=== PATIENT | female | born 1960 | race Caucasian/White ===

== ENCOUNTER 2017-05-24 00:48 | Inpatient (IN) | payer MEDICARE, BC ==
[~2017-05-24] VITALS: Ht 160 cm; Wt 57.6 kg
--- NOTE | ~2017-05-24 | CO ---
Unit #: [id number] #: [id number] Patient: BÁRBARA GREGG V [id number] [address] [place], [place] [address] [id number] I MR#: [id number] NAME: BÁRBARA GREGG V. ROOM: 228 Age: 57 Sex: F Admission Date: 05/24/2017 : 1960 Attending Physician: Mitzi Hernandez M.D. Primary Care Physician: Primary Care Physician No Consultation Date: 06/03/2017 CONSULTATION REPORT REASON FOR CONSULTATION Followup. DISCUSSION Ms. Bárbara Gregg is a 57-year-old female, seen in room 228, bed 1 on 06/03/2017. The patient reports having problem with the anxiety, problem with sleep. The patient was taken off from all medication, as the patient was admitted in delirious state in ICU. The patient reports making progress, breathing better, still having problem with depression and anxiety, but denied any suicidal or homicidal ideation. Denied any psychotic symptom. The patient's vital signs; temperature 98.4, heart rate 79, respiratory rate 18, blood pressure 141/86, oxygen saturation 99%. MENTAL STATUS EXAMINATION General appearance; the patient dressed in hospital attire, thin built, dressed casually, seemed somewhat anxious, nervous. Attention span and concentration, fair. Speech, rapid in rate. Oriented in time, place, and person. Mood and affect, labile. Thought process, circumstantial. Thought content, the patient denied any thoughts of harming self or others or any auditory or visual hallucinations but somewhat guarded. Recent and remote memory, fair. Language, intact. Fund of knowledge, fair. Insight and judgment, fair to slightly impaired. DIAGNOSIS Psychiatric: Major depressive disorder, recurrent, severe, F33.2. ASSESSMENT/PLAN 1. Supportive psychotherapy and psychoeducation provided to the patient. 2. Educated about benefits and side effects of medication and course and prognosis of illness. 3. Recommending at this time to add Remeron 15 mg at bedtime to help with sleep, depression, anxiety, appetite and Vistaril 25 mg b.i.d. for anxiety. We will continue to follow. Please feel free to call if any questions, telephone #[phone]. Dictated by... Diana Swanson/jessa TD: 06/03/2017 23:25 JOB #: [id number] Unit #: [id number] #: [id number] Patient: BÁRBARA GREGG V CONSULTATION REPORT Page 1 of 1 X Familia Simpson MD CONSULTATION REPORT
--- NOTE | ~2017-05-24 | CO ---
Unit #: [id number] #: [id number] Patient: BÁRBARA GREGG V [id number] [facility] [address]. [place], [place] [address] [id number] I MR#: [id number] NAME: BÁRBARA GREGG ROOM: 549 Age: 57 Sex: F Admission Date: 05/24/2017 : 1960 Attending Physician: Mitzi Hernandez M.D. Primary Care Physician: Primary Care Physician No Consultation Date: 05/30/2017 CONSULTATION REPORT REASON FOR CONSULTATION Psychosis, confusion, depression, anxiety. HISTORY OF PRESENT ILLNESS Ms. Bárbara Gregg is a 57-year-old white female, seen in room CCU-3, bed 15 at [facility] on 05/30/2017. The patient dressed casually in hospital attire, sitting comfortably in chair, made poor eye contact. She seemed somewhat sleepy, drowsy, confused, repeating same sentence over and over again. The patient was unable to give any coherent information. No agitation. Vital signs; temperature afebrile, pulse 92, respirations 16, blood pressure 126/69, and oxygen saturation 100%. The patient was admitted on 05/24/2017 due to decrease oral intake, not feeling well, shortness of air, and cough. The patient was diagnosed with empyema. The patient is sleeping a lot, increase sedation. PAST PSYCHIATRIC HISTORY Remarkable for history of depression and anxiety. No known history of any inpatient treatment. History of being treated with medication. MEDICAL HISTORY History of recurrent pneumonia, COPD, anxiety, depression, fibromyalgia, chronic pain. MEDICATION HISTORY At the time of admission, the patient was on Valium, Norvasc, doxepin, morphine, hydroxyurea, Topamax, tizanidine. FAMILY HISTORY AND SOCIAL HISTORY The patient has a good support system. No history of abuse. No history of any substance abuse. REVIEW OF SYSTEMS Complete review of systems is unremarkable. MENTAL STATUS EXAMINATION The patient's vital signs, please see above. General appearance; the patient dressed in hospital attire, sitting comfortably in chair, somewhat sleepy and drowsy. Attention span and concentration, poor. Speech, rambling. Orientation in self. Mood and affect, labile. Thought process, circumstantial. Thought content, unable to assess, somewhat guarded and paranoid. Recent and remote memory, poor. Language, poor. Fund of knowledge, impaired. Insight and judgment, impaired. Unit #: [id number] #: [id number] Patient: BÁRBARA GREGG V DIAGNOSES Psychiatric: Major depressive disorder, recurrent, severe, F33.2; anxiety disorder, not otherwise specified, F40.01; delirium, F05; psychosis, not otherwise specified, F29.0. Secondary diagnosis: Deferred. Medical diagnosis: Please refer to H and P. Stressors: Psychosocial stressors. ASSESSMENT/PLAN Supportive psychotherapy and psychoeducation provided to the patient, but the patient unable to comprehend much at this time. Recommending at this time to discontinue Valium. At this time, the patient is getting Valium 5 mg q.8 hourly which is adding to her sedation. The patient is also getting pain medication. We would like to avoid Valium as far as possible and monitor for any side effects and consider low dose of Risperdal if needed for psychosis. We will continue to follow. Please feel free to call if any questions, telephone #[phone]. Dictated by... Diana Swanson/jesas TD: 05/30/2017 23:37 JOB #: [id number] CONSULTATION REPORT Page 1 of 1 X Familia Simpson MD X CONSULTATION REPORT
--- NOTE | ~2017-05-24 | CT4 ---
[facility] A Service of [facility] RADIOLOGY TEXT RESULTS PATIENT: BÁRBARA JAY V LOCATION: [facility] : 56 UNIT #: [id number] AGE: [address]: Mitzi Hernandez MD SEX: F ORDER DR: [id number] [facility] [address]. [place], [place] [address] [id number] I MR#: [id number] Acc #: [id number] NAME: BRÁBARA JAY : 1960 SEX: F STUDY DATE/TIME: 05/24/2017 13:11 UNIT: C3A PCU ROOM: 310 STUDY DESCRIPTION: CT Abd and Pelv Wo Cont Attending Physician: Mitzi Hernandez M.D. Ordering Physician: [facility] MEDICAL IMAGING REPORT This report is preliminary unless electronic signature is present EXAM CT abdomen and pelvis without contrast INDICATIONS Abdominal distention since yesterday. TECHNIQUE CT of the abdomen and pelvis was performed without contrast. Coronal and sagittal reformatted images were obtained. This CT exam was performed with one or more of the following radiation dose reduction techniques: automatic exposure control, adjustment of mA and/or kV according to patient size, and iterative reconstruction. COMPARISON STUDIES No comparison studies are available. FINDINGS The liver is unremarkable. Trace ascites around the dome of the liver. Cholecystectomy. The spleen is unremarkable. Tiny presumed hyperdense cyst left kidney. The right kidney is unremarkable. Adrenal glands are unremarkable. Pancreas is unremarkable. There are dilated fluid-filled loops of small bowel and fluid within the colon. PELVIS: There is a Gonzalez catheter in the bladder and a small amount of air in the nondependent portion of the urinary bladder. There is some fluid within the colon. There is trace free fluid in the deep pelvis. Remainder of the pelvis is unremarkable. Bone windows demonstrate degenerative changes lower lumbar spine. IMPRESSION 1. There are dilated, fluid-filled loops of small bowel but there is also [facility] A Service [facility] RADIOLOGY TEXT RESULTS PATIENT: BÁRBARA JAY V LOCATION: [facility] 310 : [birth year] UNIT #: [id number] AGE: [address]: Mitzi Hernandez MD SEX: F ORDER DR: fluid within the colon and there is no obvious bowel obstruction. 2. Cholecystectomy. 3. Gonzalez catheter within the bladder. Dictated by... Jared Hadley M.D. THIS IS AN ELECTRONICALLY VERIFIED REPORT Jared Hadley M.D. at 05/26/2017 12:11 PM ARS/pcl TD: 05/24/2017 22:01 JOB #: [id number] MEDICAL IMAGING REPORT Page 1 of 1 COPY
--- NOTE | ~2017-05-24 | CO ---
Unit #: [id number] #: [id number] Patient: BÁRBARA GREGG V [id number] [facility] [address] [facility]. [place], [place] [address] [id number] I MR#: [id number] NAME: BÁRBARA GREGG V. ROOM: 228 Age: 57 Sex: F Admission Date: 05/24/2017 : 1960 Attending Physician: Mitzi Hernandez M.D. Primary Care Physician: Primary Care Physician No Consultation Date: 06/02/2017 CONSULTATION REPORT DISCUSSION Ms. Bárbara Gregg is a 57-year-old female, seen on 06/02/2017. The patient interviewed, chart reviewed, and obtained information from nursing staff. The patient seen in room 228, bed 1 on 06/02/2017. The patient seen at [facility]. The patient still sad, depressed, anxious, but making progress and breathing better. She still having problem with mood lability, anxiety trouble sleeping. The patient was initially admitted to in order mental status in ICU. The patient reports making progress. Denied any suicidal or homicidal ideation, but problem with the anxiety, feeling anxious and nervous. The patient's vital signs; temperature 98.2, heart rate 67, respiratory rate 20, blood lucgniou389/88, and oxygen saturation 98%. MENTAL STATUS EXAMINATION General appearance; the patient dressed in hospital attire. Attention span and concentration, fair. Speech, regular rate and somewhat rapid. Oriented in time, place, and person. Mood and affect, labile. Thought process, circumstantial. Thought content, the patient denied any thoughts of harming self or others, but anxious, nervous, sad, depressed. Recent and remote memory, fair to slightly impaired. Language, fair. Fund of knowledge, fair. Insight and judgment, fair to slightly impaired. DIAGNOSES Psychiatric: Major depressive disorder, recurrent, severe, F33.2; anxiety disorder, not otherwise specified, F40.01. ASSESSMENT/PLAN 1. Supportive psychotherapy and psychoeducation provided to the patient. 2. Educated about benefits and side effects of medication and course and prognosis of illness. 3. Plan to consider starting the patient on Vistaril and Remeron. If no improvement, we will continue to follow. Please feel free to call if any questions telephone #[phone]. Dictated by... Diana Swanson/jessa TD: 06/04/2017 01:00 JOB #: [id number] Unit #: [id number] #: [id number] Patient: BÁRBARA GREGG V CONSULTATION REPORT Page 1 of 1 X Fmailia Simpson MD X CONSULTATION REPORT
--- NOTE | ~2017-05-24 | XA166 ---
[facility] A Service of [facility] RADIOLOGY TEXT RESULTS PATIENT: BÁRBARA JAY V LOCATION: [facility] 228-01 : [birth year] UNIT #: [id number] AGE: [address]: Mitzi Hernandez MD SEX: F ORDER DR: [id number] [place] [id number] [facility]. [place], [place] [address] [id number] I MR#: [id number] Acc #: [id number] NAME: BÁRBARA JAY V. : 1960 SEX: F STUDY DATE/TIME: 06/04/2017 14:23 UNIT: [facility] ROOM: [facility] STUDY DESCRIPTION: XA PICC Line Placement WO Port Attending Physician: Mitzi Hernandez M.D. Ordering Physician: Mitzi Hernandez M.D. Primary Care Physician: Primary Care Physician No MEDICAL IMAGING REPORT This report is preliminary unless electronic signature is present EXAM Right sided PICC line placement HISTORY Need for IV access in a patient with pneumonia and emphysema. Symptoms started May 24, 2017. PRE-PROCEDURE The procedure was explained to the patient and/or patient player services representative including risks, benefits, potential complications and potential for alternative forms of treatment. Informed consent was obtained, and prior to initiating the procedure a formal timeout procedure was performed. PROCEDURE Using full standard sterile barrier technique, including caps, gowns, gloves, masks, as well as sterile skin preparation and standard sterile draping, the right arm was prepped and draped in the usual fashion, and real-time sterile ultrasound guidance was used to localize an arm vein and to confirm vessel patency. A hard copy ultrasound image was recorded. After local anesthesia with 1% Xylocaine, the vein was punctured using real-time sterile ultrasound guidance, and an 0.018 guidewire was advanced into the superior vena cava, using fluoroscopic guidance. A 5 Citizen [place] dual-lumen PICC was then measured and deployed with the tip positioned in the superior vena cava. The position of the line was documented with a radiographic image. The line was secured in place with an adhesive dressing and an antibiotic patch was applied. Total fluoro time was 0.1 minutes. AK was 1 mGy. IMPRESSION Successful placement of a 5 [place] dual-lumen PowerPICC via the right arm under ultrasound and fluoroscopic guidance. The tip of the PICC is in STS. [facility] A Service of [facility] RADIOLOGY TEXT RESULTS PATIENT: BÁRBARA JAY V LOCATION: [facility] 228-01 : [birth year] UNIT #: [id number] AGE: [address]: Mitzi Hernandez MD SEX: F ORDER DR: good position in the superior vena cava. Dictated by... Missy Sutton M.D. THIS IS AN ELECTRONICALLY VERIFIED REPORT Missy Sutton M.D. at 06/06/2017 5:06 PM JOHNNY/warner TD: 06/06/2017 12:53 JOB #: [id number] MEDICAL IMAGING REPORT Page 1 of 1 COPY
--- NOTE | ~2017-05-24 | CO ---
Unit #: [id number] #: [id number] Patient: BÁRBARA JAY V [id number] [address] [place], [place] [address] [id number] I MR#: [id number] NAME: BÁRBARA JAY V. ROOM: 310 Age: 57 Sex: F Admission Date: 05/24/2017 : 1960 Attending Physician: Mitzi Hernandez M.D. Primary Care Physician: No Primary Care Physician Consultation Date: 05/24/2017 CONSULTATION REPORT ADMITTING AND REFERRING PHYSICIAN Dr. Sadler. CONSULTING SERVICE [facility]. CONSULTING PHYSICIAN Dr. Gil. REASON FOR CONSULTATION Acute kidney injury. HISTORY OF PRESENT ILLNESS The patient is a 57-year-old white female with history of hypertension, fibromyalgia, chronic pain who was transferred from [facility] for further management of pneumonia and empyema. She was admitted there on April 25, 2017 for pneumonia, hospitalized about a week, then discharged to rehab for a short stay. She continued to decline at home and was re-admitted to [facility] four days ago. I do not see any records from there at this time. Upon transfer here, she is noted to have marked azotemia with BUN of 54 and creatinine of 5.5 and metabolic acidosis with serum bicarbonate of 14. She is aware of abnormal renal function at [facility] but does not recall being seen by nephrology. The patient is a very poor historian in general. Her mentation is slow and she defers much of the questioning to her sister at bedside. She denies any nausea or vomiting but does note diarrhea lately. She reports some recent anti-inflammatory use. She denies any dysuria, hematuria, or hesitancy. Gonzalez catheter has been placed upon arrival here and there is about 200 mL of urine in the bag presently. Blood pressure was down to 95/65 earlier. She has been started on midodrine and normal saline at 125 mL/hr. She just returned from interventional radiology where a right internal jugular triple lumen catheter was placed. She also is to go for noncontrast CT of chest, abdomen, and pelvis this afternoon. She is unaware of any prior kidney problems in general including kidney stones. Records found from [facility]: Additional home medications noted on these record include meloxicam, lisinopril, omeprazole, prednisone. She had a CT of the head that showed remote lacunar infarct of the basal ganglia but no acute abnormalities. She was treated with Zyvox and Zosyn there. Creatinine was 3.1 on May 21, 2017. CT abdomen and pelvis without contrast on May 20 demonstrated unremarkable kidneys, no hydronephrosis, severe ileus noted along with right lower lobe cavitary consolidation and effusion which was also demonstrated on CT chest May 23. Hemoglobin was 8.6 yesterday and creatinine had climbed to 4.3 on May 23. Urinalysis Unit #: [id number] #: [id number] Patient: BÁRBARA JAY V yesterday demonstrated moderate blood, trace protein. PAST MEDICAL HISTORY 1. Hypertension. 2. Fibromyalgia. 3. Chronic pain. 4. Migraine headaches. 5. Anxiety and depression. 6. COPD. 7. Recurrent pneumonia. PAST SURGICAL HISTORY 1. Cholecystectomy. 2. Tonsillectomy. 3. Appendectomy. FAMILY HISTORY Unaware of any kidney problems. SOCIAL HISTORY Half pack per day smoker. Denies alcohol. HOME MEDICATIONS 1. Valium. 2. Norvasc. 3. Doxepin. 4. Morphine. 5. Hydroxyurea (cannot clearly identify indication for this medication). 6. Topamax. 7. Tizanidine. ALLERGIES Deconamine. REVIEW OF SYSTEMS Unable to fully obtain due to patient's limitations as a historian. Pertinent findings as per HPI. PHYSICAL EXAMINATION VITAL SIGNS: Temperature 97.7, blood pressure 105/62, heart rate 92, respirations 18. GENERAL: The patient is a pleasant middle-aged white female with a flat affect and somewhat slow mentation. She is in no acute distress. HEENT: Oropharynx is clear. Dry mucous membranes. NECK: Supple. No JVD. Right internal jugular triple lumen catheter in place. LUNGS: Coarse breath sounds bilaterally, diminished at the bases. CARDIAC: Regular rate and rhythm. No murmurs. ABDOMEN: Soft, nontender, nondistended. VASCULAR: No pedal or hip edema. Two plus radial pulses. DERMATOLOGIC: Normal skin turgor. No rash. MUSCULOSKELETAL: No joint warmth or erythema. NEUROLOGIC: Follows commands appropriately. Speech is intact. DIAGNOSTIC STUDIES LABORATORY: Sodium 133, potassium 4.1, chloride 105, bicarbonate 14, BUN 54, creatinine 5.5, glucose 67, calcium 7.7. Albumin 1.6, AST 28, ALT 25. Lactic acid 0.9. Unit #: [id number] #: [id number] Patient: BÁRBARA JAY V IMAGING: Imaging from today is pending including repeat CT abdomen without contrast. ASSESSMENT 1. Acute kidney injury: Appears to be nonoliguric. Suspect acute tubular necrosis in the setting of pneumonia, empyema, nonsteroidal anti-inflammatory and angiotensin converting enzymes inhibitor use. Volume depletion appears unlikely as the patient was receiving IV fluids at outside hospital without improvement. Her creatinine has steadily increased from 3 to 4.3 to 5.5 today. There is no obstruction on CT abdomen and pelvis at outside hospital. Acute interstitial nephritis is also a consideration, i.e. from proton pump inhibitor use or Zosyn, though this is less likely. Potassium is normal. The patient had significant metabolic acidosis, though there is no acute indication for hemodialysis. 2. Recurrent pneumonia, empyema: Infectious disease evaluation noted. Antibiotics switched to cefepime and Levaquin. Zosyn and Zyvox were discontinued. Cardiothoracic surgery has been consulted for possible VATS. 3. Hypotension: Blood pressure has improved from 90 systolic to 105. Midodrine started, though patient is NPO at this time. There is no need for pressor at the moment. 4. Metabolic acidosis: Severe with serum bicarbonate of 14, corrected anion gap of approximately 20. This is due to acute kidney injury as well as outpatient Topamax use. 5. Hyponatremia: Mild, sodium 133. 6. Small bowel obstruction: CT abdomen from here is pending. Nasogastric tube placement was unsuccessfully attempted earlier. PLAN 1. No acute indication for hemodialysis. 2. Continue normal sinus rhythm, IV fluids (bicarbonate drip shortage confirmed with pharmacy still). 3. Antibiotics per infectious disease. 4. Avoid IV contrast. 5. Renally dosed medications for GFR less than 15 mL/min. 6. I discussed with patient the possible need for hemodialysis if current trend in waste products and acidosis continues through the weekend. Thank you, Dr. Sadler, for involving me in patient's care. Will follow along. Dictated by... Yomi Gil M.D. FALLON/wes TD: 05/27/2017 09:29 JOB #: [id number] Unit #: [id number] #: [id number] Patient: BÁRBARA JAY V CONSULTATION REPORT Page 1 of 1 X X CONSULTATION REPORT
--- NOTE | ~2017-05-24 | CO ---
Unit #: [id number] #: [id number] Patient: BÁRBARA JAY V [id number] [address] [place], [place] [address] [id number] I MR#: [id number] NAME: BÁRBARA JAY ROOM: 549 Age: 57 Sex: F Admission Date: 05/24/2017 : 1960 Attending Physician: Mitzi Hernandez M.D. Primary Care Physician: Primary Care Physician No Consultation Date: 05/31/2017 CONSULTATION REPORT REASON FOR CONSULT Decreased ejection fraction with possible CHF. HISTORY OF PRESENT ILLNESS This is a pleasant 57-year-old, female, who was originally admitted on 05/24/2017. The patient has a past medical history significant for COPD, anxiety, depression, fibromyalgia, chronic pain syndrome, and recurrent pneumonia. She initially presented to the emergency room at [facility] secondary to decreased oral intake and fatigue, shortness of breath and cough. The patient was transferred here for further evaluation. CT scan showed a loculated right pleural effusion as well as a right lower lobe pneumonia. The patient underwent right-sided VATS procedure on 05/28/[address] Lopez with chest tube placement. Her chest tube has been removed today. We were asked to see the patient secondary to possible CHF. 2D echo has been reviewed by Dr. Naidu, which shows ejection fraction estimated at 35%, mild to moderate generalized hypokinesis of left ventricle, impaired relaxation, grade 1 diastolic dysfunction, mild to moderate tricuspid regurgitation with RVSP of 50 mmHg, mildly enlarged right ventricle with mildly reduced right ventricular function. The patient denies any past medical history of congestive heart failure. Denies any history of coronary artery disease. She states that she does not have any complaints of chest pain or palpitations at this time. EKG is currently pending. Of note, the patient does have a significant family history for coronary artery disease in both, her mother who has CAD and history of stents as well as her father who has of an CT at age 64. PAST MEDICAL HISTORY 1. Hypertension. 2. Recurrent pneumonia. 3. COPD. 4. Anxiety. 5. Depression. 6. Fibromyalgia. 7. Chronic pain syndrome. PAST SURGICAL HISTORY 1. Cholecystectomy. 2. Tonsillectomy. 3. Appendectomy. 4. Status post VATS procedure with subsequent chest tube placement and removal. Unit #: [id number] #: [id number] Patient: BÁRBARA JAY V SOCIAL HISTORY The patient lives with her mother and brother. She is a reformed tobacco user. States she quit approximately 2 weeks ago. Prior to that, she was smoking about half pack a day for 20+ years. She reports occasional alcohol use. Denies any illicit drug use. FAMILY HISTORY Positive for hypertension, coronary artery disease in her mother with a history of angioplasty and stenting. Father has known coronary artery disease, at age 64 from myocardial infarction. ALLERGIES Deconamine. HOME MEDICATIONS Amlodipine 5 mg p.o. daily, lisinopril 10 mg p.o. q.h.s., Lyrica 100 mg p.o. t.i.d., tizanidine 4 mg p.o. t.i.d., Embeda ER 80/3.2 p.o. b.i.d., diazepam 10 mg p.o. t.i.d., Robaxin 750 mg p.o. t.i.d., topiramate 50 mg p.o. b.i.d., loratadine D one tablet p.o. daily, doxepin 100 mg p.o. q.h.s., Savella 50 mg p.o. b.i.d., rizatriptan 10 mg p.o. daily. REVIEW OF SYSTEMS Negative except for what was stated above in the HPI. PHYSICAL EXAMINATION GENERAL: This is a pleasant female, with a flat affect. No acute distress. She is currently up in the chair. VITAL SIGNS: Temperature 97.9, respiratory rate 18 to 20, pulse 88, blood pressure 155/86. HEENT: Head is atraumatic and normocephalic. Pupils are equal and round. NECK: Trachea is midline. No lymphadenopathy. No thyromegaly. Carotid upstrokes are normal. She does have a central line on the right side. CARDIOVASCULAR: S1, S2. No murmurs, gallops, or rubs. PULMONARY: Lungs are clear to auscultation on the anterior, diminished on the right base. The patient does have a dressing into place. Status post chest tube removal today. ABDOMEN: Soft, nontender, nondistended. Bowel sounds are present. EXTREMITIES: Pulses are palpable, but weak. No clubbing or cyanosis. She does have 1+ pedal edema bilaterally. Right upper extremity is swollen. Pulses are palpable. NEUROLOGIC: She is awake, alert, and oriented x3. Moves all extremities equally and appropriately. She follows commands with ease. DIAGNOSTIC STUDIES LABORATORY RESULTS: Glucose 91, BUN 22, creatinine 2.1. Sodium 135, potassium 3.4, chloride 100, CO2 of 28, magnesium is 1.6. Albumin is 1.5 and TSH is 3.82. PT 14.4, INR of 1.3. Hemoglobin 8.1, hematocrit 24.3, WBCs 25.6, platelet count 536. IMAGING STUDIES: Chest x-ray today shows right-sided chest tubes remain in place. Right IJ central line terminates in the right atrium. Heart and mediastinal contours are unchanged. Patchy right lung airspace opacities and small right effusion are unchanged. No pneumothorax. CARDIOVASCULAR STUDIES: EKG shows sinus tachycardia, rate of 114 beats per minute. QTc interval 432 msec. Cannot rule out prior inferior and anterior infarct. No acute ischemic changes noted. Unit #: [id number] #: [id number] Patient: BÁRBARA JAY V IMPRESSION 1. Decreased ejection fraction of 35%. 2. Possible congestive heart failure. 3. Recurrent pneumonia, status post right-sided video-assisted thoracoscopic surgery procedure with subsequent chest tube placement and removal. 4. Acute on chronic kidney disease. Creatinine 2.1. 5. Chronic obstructive pulmonary disease. 6. Hypertension. 7. Anxiety and depression. 8. Recently reformed tobacco cessation approximately 2 weeks ago. 9. Anemia. PLAN This is a very pleasant 57-year-old female, who has had no prior cardiac history. We were asked to see the patient secondary to possible CHF. 2D echocardiogram was performed, which shows an LVEF of 35%. Grade 1 diastolic dysfunction as well as mild to moderate TR with an RVSP of 50 mmHg. The patient reports she has never had ischemic workup in the past. We will check EKG x1 now as well as a fasting lipid profile in the morning. No FRANCISCO JAVIER or ARB can be initiated at this time secondary to her acute on chronic kidney injury. The patient does have risk factors for coronary artery disease, which include hypertension, tobacco abuse, family history coronary artery disease. Would recommend ischemic evaluation to rule out any underlying coronary artery disease. We will consider initiation of beta-misti tomorrow at this time. She does not appear to be in any fluid overload, requiring diuretic therapy. She was educated on the importance of continued smoking cessation as well as lifestyle modification. Further recommendations to follow pending Dr. Naidu's assessment. Also, the patient is slightly hypokalemic. We will give a gentle dose of K-Dur today x1 as well as magnesium replacement. We will check BNP, magnesium, BMP and a CBC in the morning. Dictated by... Magalys Ellsworth A.P.R.N. LMW/modl TD: 06/01/2017 08:22 JOB #: [id number] CONSULTATION REPORT Page 1 of 1 X Magayls Ellsowrth APRN X CONSULTATION REPORT
--- NOTE | ~2017-05-24 | CO ---
Unit #: [id number] #: [id number] Patient: BÁRBARA JAY V [id number] [address] [place], [place] [address] [id number] I MR#: [id number] NAME: BÁRBARA JAY V. ROOM: 310 Age: 57 Sex: F Admission Date: 05/24/2017 : 1960 Attending Physician: Mitzi Hernandez M.D. Primary Care Physician: Primary Care Physician No Consultation Date: 05/24/2017 CONSULTATION REPORT The consultation was requested per Dr. Sadler of Pulmonary. HISTORY OF PRESENT ILLNESS The patient is a 56-year-old white female with a history of chronic obstructive pulmonary disease, who was in [facility] for about 1 week last month for pneumonia. She was then transferred to a rehab center and then subsequently discharged home after about 5 days. She recently presented back to the emergency room at [facility] secondary to increased cough, shortness of breath, diarrhea, and abdominal pain. X-ray studies done at that time showed right pneumonia with what seemed to be an associated loculated effusion suggestive of empyema. There was also found to be dilated loops of small and large bowel. She was transferred to [facility] for further evaluation and treatment. She was placed on IV antibiotics, which included Zyvox and Zosyn. Because of an elevated BUN and creatinine, she was also seen by Renal. Also in view of her abdominal distention and pain, she was evaluated by General Surgery. ALLERGIES The patient is allergic to Deconamine. PAST MEDICAL HISTORY She has a past history of recurrent pneumonia, chronic obstructive pulmonary disease, anxiety, depression, fibromyalgia, and chronic pain syndrome. PAST SURGICAL HISTORY Include cholecystectomy, tonsillectomy and adenoidectomy, and an appendectomy. SOCIAL HISTORY She smokes about 1/2 pack of cigarettes per day. She drinks alcohol occasionally. She denies any drug abuse. FAMILY HISTORY Significant for hypertension, cancer, heart disease, and diabetes mellitus. HOME MEDICATIONS Include Valium, Norvasc, doxepin, morphine, hydroxyurea, Topamax, and tizanidine. REVIEW OF SYSTEMS Essentially negative except for those things stated in the present illness and past history. Unit #: [id number] #: [id number] Patient: BÁRBARA JAY V PHYSICAL EXAMINATION VITAL SIGNS: The patient's temperature is 97.7, the pulse is 92, respirations 18, and blood pressure 105/62. HEENT: Normocephalic without lesions. The pupils are equally round and reactive to light. Extraocular movements are full. NECK: Supple without adenopathy. LUNGS: Decreased breath sounds bilaterally at the bases, but worse on the right side and associated with some rhonchi. HEART: Regular rhythm without murmurs. ABDOMEN: Distended and tender to palpation. The patient has hypoactive bowel sounds. EXTREMITIES: No cyanosis or edema present. NEUROLOGIC: No focal neurologic deficits present. DIAGNOSTIC STUDIES LABORATORY RESULTS: The potassium was 4.1, the BUN was 54, the creatinine is elevated at 5.5. IMAGING STUDIES: Chest and abdominal CT scans showed evidence of right pneumonia with a loculated right pleural effusion, suggestive of possible empyema. The patient was also noted to have distended small bowel and colon throughout suggestive of a possible ileus. IMPRESSION 1. Right-sided pneumonia with a moderate-sized loculated right pleural effusion suggestive of a possible empyema. 2. Probable ileus. 3. Acute renal failure. PLAN Agree with gentle hydration and IV antibiotics as we are doing. The patient will eventually need a right video-assisted thoracoscopy with decortication after she stabilizes from her abdominal symptoms and the renal failure. Dictated by... Diana Esquivel/jessa TD: 05/28/2017 04:37 JOB #: [id number] CONSULTATION REPORT Page 1 of 1 X Bob Lopez MD X CONSULTATION REPORT
--- NOTE | ~2017-05-24 | EKG ---
PATIENT: BÁRBARA JAY UNIT #: [id number] Ventricular Rate: 114 BPM Atrial Rate: 114 BPM P-R Interval: 154 ms QRS Duration: 80 ms Q-T Interval: 314 ms QTC Calculation(Bezet): 432 ms P [place]: 34 degrees Calculated R [place]: -8 degrees Calculated T [place]: 10 degrees Diagnosis Line: Sinus tachycardia Diagnosis Line: Cannot rule out Inferior infarct , age Diagnosis Line: undetermined Diagnosis Line: Cannot rule out Anterior infarct , age Diagnosis Line: undetermined Diagnosis Line: Abnormal ECG Diagnosis Line: No previous ECGs available Diagnosis Line: Confirmed by MARIOLA ORTIZ MD ([id number]) on Diagnosis Line: 05/31/2017 3:36:54 PM INTERPRETING MD: KARLI
--- NOTE | ~2017-05-24 | CR4 ---
[facility] A Service of [facility] RADIOLOGY TEXT RESULTS PATIENT: BÁBRARA JAY V LOCATION: [facility]15 : 56 UNIT #: [id number] AGE: [address]: Mitzi Hernandez MD SEX: F ORDER DR: [id number] [facility] [address] [facility] [address] [facility]. [place], [place] [address] [id number] I MR#: [id number] Acc #: [id number] NAME: BÁRBARA JAY : 1960 SEX: F STUDY DATE/TIME: 05/24/2017 20:07 UNIT: C3A PCU ROOM: 310 STUDY DESCRIPTION: CR Abdomen Flat Upright or Dec Attending Physician: Mitzi Hernandez M.D. Ordering Physician: Angel Bliss Jr., M.D. Primary Care Physician: Primary Care Physician No MEDICAL IMAGING REPORT This report is preliminary unless electronic signature is present EXAM Acute abdominal series COMPARISON CT chest abdomen pelvis on the same date. INDICATION 57-year-old female with abdominal pain for 2 days. FINDINGS There is a loculated right pleural effusion with associated right basilar atelectasis or pneumonia. There has been interval placement of right internal jugular catheter with the tip in the deep right atrium, consider retraction by approximately 6.5 cm. No evidence of pneumothorax. Cardiomediastinal silhouette is within normal limits for low lung volumes. There is no free subdiaphragmatic air. There is gaseous distension of small bowel loops and colon, a finding which seems to reflect ileus. There appears to be diffuse fluid distension of small bowel and colon on comparison CT of earlier today and the findings could reflect an ileus secondary to acute enteritis. There are bilateral pelvic calcifications most in keeping with phleboliths. Prior cholecystectomy noted. Degenerative facet disease in the lower lumbar spine, L4-L5 and likely L5-S1. IMPRESSION 1. Findings most consistent with ileus. No evidence of bowel perforation. 2. Moderate to small loculated right pleural effusion with associated right atelectasis versus pneumonia. 3. Interval placement of a right internal jugular catheter since CT of May 24, 2017. This is in the deep right atrium. Consideration of retraction by approximately 6.5 cm is recommended. [facility] A Service of [facility] RADIOLOGY TEXT RESULTS PATIENT: ÁBRBARA JAY V [facility]ATION: [facility] : 56 UNIT #: [id number] AGE: [address]: Mitzi Hernandez MD SEX: F ORDER DR: Dictated by... Tim Smith M.D. THIS IS AN ELECTRONICALLY VERIFIED REPORT Tim Smith M.D. at 05/29/2017 1:34 PM MANSOOR/zachariahr TD: 05/25/2017 01:57 JOB #: [id number] MEDICAL IMAGING REPORT Page 1 of 1 COPY
--- NOTE | ~2017-05-24 | CO ---
Unit #: [id number] #: [id number] Patient: BÁRBARA JAY V [id number] [address] [address] [id number] I MR#: [id number] NAME: BÁRBARA JAY V. ROOM: 228 Age: 57 Sex: F Admission Date: 05/24/2017 : 1960 Attending Physician: Mtizi Hernandez M.D. Primary Care Physician: Primary Care Physician No Consultation Date: 06/04/2017 CONSULTATION REPORT CONSULTATION FOLLOWUP Ms. Vuong is a 57-year-old white female, seen in room 228, bed 1, on 06/04/2017 at [facility]. The patient reports that medication change is helping her, sleeping good, decrease in anxiety. The patient reported eating good, pleasant and cooperative during the interview, dressed in hospital attire, sitting in recliner eating her lunch. The patient's vital signs, 99.1, 72, 20, and 157/87, oxygen saturation 93%. MENTAL STATUS EXAMINATION VITAL SIGNS: Please see above. GENERAL APPEARANCE: The patient is dressed in hospital attire, sitting in recliner. Attention span and concentration, fair. Speech, regular rate, coherent. Oriented in time, place, and person. Mood and affect was brighter. Thought process, coherent. Thought content, the patient denied any thoughts of harming self or others, or any psychotic symptoms. Recent and mote memory, fair. Language intact. Fund of knowledge, fair. Insight and judgment fair to slightly impaired. DIAGNOSES 1. Major depressive disorder, recurrent, severe, F33.2. 2. Anxiety disorder, NOS, F40.01. ASSESSMENT/PLAN 1. Supportive psychotherapy, psychoeducation provided to the patient. 2. Educated about benefits and side effects of medication, and course and prognosis of illness. 3. Advise to continue with the current combination of medication. 4. The patient was started on Remeron and Restoril combination, if needed consider further adjustment of medication, please feel free to call for any questions, telephone number [phone]. Dictated by... Familia Simpson M.D. BERTHA/ann-marie TD: 06/05/2017 07:52 JOB #: [id number] Unit #: [id number] #: [id number] Patient: BÁRBARA JAY V CONSULTATION REPORT Page 1 of 1 X Familia Simpson MD CONSULTATION REPORT
--- NOTE | ~2017-05-24 | US140 ---
[facility] A Service of [facility] RADIOLOGY TEXT RESULTS PATIENT: BÁRBARA JAY V LOCATION: [facility] : 56 UNIT #: [id number] AGE: [address]: Mitzi Hernandez MD SEX: F ORDER DR: [id number] [facility] [address]. [place], [place] [address] [id number] I MR#: [id number] Acc #: [id number] NAME: BÁRBARA JAY : 1960 SEX: F STUDY DATE/TIME: 05/31/2017 16:22 UNIT: [facility] ROOM: [facility] STUDY DESCRIPTION: US UE Veins Unilat or Ltd Stdy Attending Physician: Mitzi Hernandez M.D. Ordering Physician: Shanita Sadler M.D. Primary Care Physician: No Primary Care Physician MEDICAL IMAGING REPORT This report is preliminary unless electronic signature is present EXAM Right upper extremity venous ultrasound INDICATION Swelling of the right arm since this morning. The venous system of the right extremity was evaluated with dunn-scale imaging, color flow Doppler and compression ultrasound. FINDINGS There is compression and flow were appropriate in the internal jugular vein, subclavian vein, axillary vein, brachial vein and basilic vein. The proximal cephalic vein is thrombosed. IMPRESSION There is superficial venous thrombosis in the proximal cephalic vein. The deep venous system is patent. STAT * RESULT Dictated by... Garth Quintanilla M.D. THIS IS AN ELECTRONICALLY VERIFIED REPORT Garth Quintanilla M.D. at 06/01/2017 8:36 AM Cheryl TD: 05/31/2017 17:51 JOB #: [id number] MEDICAL IMAGING REPORT [facility] A Service [facility] RADIOLOGY TEXT RESULTS PATIENT: BÁRBARA JAY V LOCATION: [facility] 01 : 56 UNIT #: [id number] AGE: [address]: Mitzi Hernandez MD SEX: F ORDER DR: Page 1 of 1 COPY
--- NOTE | ~2017-05-24 | CR72 ---
[facility] A Service of [facility] RADIOLOGY TEXT RESULTS PATIENT: BÁRBARA JAY V LOCATION: [place] [address]-15 : 56 UNIT #: [id number] AGE: [address]: Mitzi Hernandez MD SEX: F ORDER DR: [id number] [facility] [address]. [place], [place] [address] [id number] I MR#: [id number] Acc #: [id number] NAME: BÁRBARA JAY V. : 1960 SEX: F STUDY DATE/TIME: 05/29/2017 4:27 UNIT: [facility] ROOM: [facility] STUDY DESCRIPTION: CR Chest Single View Portable Attending Physician: Mitzi Hernandez M.D. Ordering Physician: Bob Lopez M.D. Primary Care Physician: Primary Care Physician No MEDICAL IMAGING REPORT This report is preliminary unless electronic signature is present EXAM Portable chest INDICATION Chest tube followup, shortness of air. PROCEDURE Frontal view chest. COMPARISON 05/28/2017. FINDINGS Heart size stable. Two right-sided chest tubes are unchanged. Small right sided pneumothorax. IMPRESSION Right-sided chest tubes are stable. Tiny right-sided pneumothorax. Dictated by... Maxwell Hernández M.D. THIS IS AN ELECTRONICALLY VERIFIED REPORT Maxwell Hernández M.D. at 05/29/2017 10:00 PM TWAN/daja TD: 05/29/2017 10:38 JOB #: [id number] MEDICAL IMAGING REPORT Page 1 of 1 COPY
--- NOTE | ~2017-05-24 | DS ---
Unit #: [id number] #: [id number] Patient: BÁRBARA JAY V [id number] [address] [address] [id number] I MR#: [id number] NAME: BÁRBARA JAY V. ROOM: 228 Age: 57 Sex: F Admission Date: 05/24/2017 : 1960 Discharge Date: 06/04/2017 Attending Physician: Mitzi Hernandez M.D. Primary Care Physician: No Primary Care Physician DISCHARGE SUMMARY ADMITTING DIAGNOSES 1. Pseudomonas pneumonia. 2. Pseudomonas empyema. 3. Ileus. 4. Acute on chronic kidney disease. 5. Severe non-anion gap metabolic acidosis. 6. Depression. 7. Anxiety. 8. Chronic obstructive pulmonary disease. 9. Fibromyalgia. 10. Chronic pain syndrome. DISCHARGE DIAGNOSES 1. Pseudomonas pneumonia. 2. Pseudomonas empyema. 3. Ileus, resolved. 4. Acute hypoxic respiratory failure, resolved. 5. Chronic obstructive pulmonary disease. 6. Anxiety. 7. Depression. 8. Fibromyalgia. 9. Chronic pain syndrome. 10. Hypertension. DISCHARGE CONDITION Stable. DISCHARGE MEDICATIONS 1. Duo-Neb q.4 hours p.r.n. 2. Sodium bicarb 1300 mg p.o. b.i.d. 3. Tylenol as needed. 4. Remeron 50 mg at bedtime. 5. Coreg 3.125 mg p.o. b.i.d. 6. Lasix 20 mg p.o. b.i.d. 7. Guaifenesin 600 mg p.o. b.i.d. 8. MS-Contin 15 mg q.8 hours p.r.n. 9. Cefepime 2 g IV until June 21, 2017. 10. Levaquin 750 mg p.o. every 48 hours until June 21, 2017. First dose to be started on June 05, 2017, a 3 p.m. HOME MEDICATIONS THAT WERE STOPPED ON ADMISSION 1. Topiramate 50 mg p.o. b.i.d. 2. Doxepin 100 mg at bedtime. 3. Dicyclomine 10 mg p.o. q.i.d. Unit #: [id number] #: [id number] Patient: BÁRBARA JAY V 4. Hydrea to take on Saturday, Saturday, Saturday. 5. Valium 10 mg t.i.d. 6. Norvasc 5 mg p.o. daily. 7. Rizatriptan 10 mg p.o. daily. 8. Estradiol. 9. Lisinopril 10 mg p.o. daily. 10. Mobic 50 mg p.o. daily p.r.n. 11. Morphine sulfate/naltrexone 80 mg/3.2 mg b.i.d. EXPERIMENTAL [employer] MECH[employer]IC 1. Dr. Bob Lopez - Cardiothoracic. 2. Dr. Edson Schwartz - Renal. 3. Dr. Cuba Yao - Infectious Disease. BRIEF HOSPITAL COURSE This is a very pleasant 57-year-old female with the above medical history who presented at our hospital as a transfer from outlying facility for evaluation of VATS procedure. The patient was admitted earlier this month for pneumonia. Her culture was consistent with Pseudomonas. Her course was complicated with development of empyema and needing VATS procedure. The patient was transferred to our facility where she was started on IV cefepime and Levaquin based on her sensitivity and cardiothoracic surgery evaluated the patient who underwent VATS procedure with just tube placement with no complication. Chest tube was removed four days ago and patient has been doing fine since then. The patient is to finish a course of antibiotics including cefepime and Levaquin until June 21, 2017. Her course also was complicated with ileus. That resolved spontaneously with bowel regimen and ambulation. Oxygen was weaned off on the day of discharge. The patient also was noted to have severe renal failure with severe metabolic acidosis on presentation. Her kidney function improved on discharge to 1.5 and she is currently on bicarb p.o. b.i.d. It is recommended that patient follows up with nephrology as an outpatient. Her lisinopril and Mobic were stopped on admission due to her kidney failure. Dictated by... Diana Cantu TD: 06/04/2017 13:13 JOB #: [id number] Unit #: [id number] #: [id number] Patient: BÁRBARA JAY V DISCHARGE SUMMARY Page 1 of 1 X PACHECO HOPKINS MD X DISCHARGE SUMMARY
--- NOTE | ~2017-05-24 | CR71 ---
[facility] A Service of [facility] & [facility] RADIOLOGY TEXT RESULTS PATIENT: BÁRBARA JAY V LOCATION: [address] : [birth year] UNIT #: [id number] AGE: [address]: Mitzi Hernandez MD SEX: F ORDER DR: [id number] [facility] [address] [facility]. [place], [place] [address] [id number] I MR#: [id number] Acc #: [id number] NAME: BÁRBARA JAY V. : 1960 SEX: F STUDY DATE/TIME: 05/28/2017 16:11 UNIT: [facility] ROOM: [facility] STUDY DESCRIPTION: CR Chest Single View Attending Physician: Mitzi Hernandez M.D. Ordering Physician: Bob Lopez M.D. Primary Care Physician: Primary Care Physician No MEDICAL IMAGING REPORT This report is preliminary unless electronic signature is present EXAM Portable chest HISTORY Shortness of air today. Postop thoracotomy. FINDINGS There is very small remaining right pleural effusion, decreased compared to 05/26/2017. Two right chest tubes with their tips overlying the right lung apex and the right suprahilar region. Increased mild linear atelectasis in the right base. New or increased dense consolidation or atelectasis in the retrocardiac left lower lobe and new linear atelectasis in the lateral left base. No pneumothorax. Right IJ line tip in the inferior margin of the right atrium 6 cm beyond the junction of the SVC and right atrium. Dictated by... Melchor Baker M.D. THIS IS AN ELECTRONICALLY VERIFIED REPORT Melchor Baker M.D. at 05/29/2017 11:30 PM DFL/rnr TD: 05/29/2017 01:08 JOB #: [id number] MEDICAL IMAGING REPORT Page 1 of 1 COPY
--- NOTE | ~2017-05-24 | CO ---
Unit #: [id number] #: [id number] Patient: BÁRBARA GREGG V [id number] [address] [address] [id number] I MR#: [id number] NAME: BÁRBARA GREGG V. ROOM: 549 Age: 57 Sex: F Admission Date: 05/24/2017 : 1960 Attending Physician: Mitzi Hernandez M.D. Primary Care Physician: Primary Care Physician No Consultation Date: 05/31/2017 CONSULTATION REPORT REASON FOR CONSULTATION Followup. DISCUSSION Ms. Bárbara Gregg is a 57-year-old white female, seen in room 549, bed 1 on 05/31/2017. The patient moved from ICU to . The patient reports that she is feeling better. The patient dressed casually in hospital attire, lying in a propped up position, able to make good eye contact, able to carry out a coherent conversation, and able to answer questions appropriately. The patient was alert and oriented in time, place, and person. Mood and affect were brighter. The patient reports making progress. Vital signs were stable; temperature 97.9, heart rate 88, respiratory rate 18, blood pressure 155/86, and oxygen saturation 100%. The patient reported this time anxiety and depression are better. The patient denied any other complaints. REVIEW OF SYSTEMS Complete review of systems unremarkable. MENTAL STATUS EXAMINATION General appearance; the patient dressed in hospital attire, lying comfortably in a propped up position. Attention span and concentration, fair. Speech, regular rate and coherent. Oriented in time, place, and person. Mood and affect were brighter. Thought process, coherent. Thought content, the patient denied any thoughts of harming self or others or any hallucination. Recent and remote memory, fair. Language, intact. Fund of knowledge, fair. Insight and judgment, fair to slightly impaired. DIAGNOSES Psychiatric: Major depressive disorder, recurrent, severe, F33.2; delirium, F05, resolved. ASSESSMENT/PLAN 1. Supportive psychotherapy and psychoeducation provided to the patient. 2. Educated about benefits and side effects of medication and course and prognosis of illness. 3. Advised no medication at this time. Plan to consider medication for depression at a later date. Please feel free to call if any questions, telephone #[phone]. Dictated by... Familia Simpson M.D. Unit #: [id number] #: [id number] Patient: BÁRBARA GREGG V BERTHA/jessa TD: 05/31/2017 23:37 JOB #: [id number] CONSULTATION REPORT Page 1 of 1 X Familia Simpson MD X CONSULTATION REPORT
--- NOTE | ~2017-05-24 | CO ---
Unit #: [id number] #: [id number] Patient: BÁRBARA JAY V [id number] [address] [place], [place] [address] [id number] I MR#: [id number] NAME: BÁRBARA JAY V. ROOM: 310 Age: 57 Sex: F Admission Date: 05/24/2017 : 1960 Attending Physician: Mitzi Hernandez M.D. Primary Care Physician: Lyly Primary Care Physician Consultation Date: 05/24/2017 CONSULTATION REPORT REVISED REPORT BRIEF SUMMARY The patient is a 57-year-old white female who was transferred from [facility] after being seen and treated there. She had been there approximately a month ago with pneumonia and treated and apparently discharged to rehab. 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 After being released and sent to rehab, she was released from rehab to home and since then has not done well, according to the sister. She was transferred under Dr. Sadler's care here at [facility] for further treatment. She was noted to have abdominal distention and has had diarrhea with some nausea and vomiting. X-rays apparently at [place], and these are not available at this time, reveal evidence of severe ileus or possibly partial small bowel obstruction. She states she is having significant diarrhea now as well as her sister with a little less abdominal distention. She denies any severe abdominal pain. She is a very poor historian and can give no additional history. PAST HISTORY 1. In addition to that given, she has evidence of significant elevation of her BUN and creatinine compatible with acute renal insufficiency. 2. Has a history for COPD. 3. Anxiety/depression. 4. Fibromyalgia. 5. Chronic pain syndrome. 6. She is on multiple narcotics at home. IMMUNIZATIONS Immunizations are up to date. REVIEW OF SYSTEMS Ten system review has been performed which is unremarkable except for that noted in Present Illness. She has had no apparent significant weight loss. PHYSICAL EXAMINATION VITAL SIGNS: On admission the patient was afebrile. Vital signs are normal. HEENT: Unremarkable. NECK: Supple. CHEST: Equal bilateral expansion with bilateral equal breath sounds. LUNGS: Clear bilaterally. HEART: Regular rhythm without murmurs or gallops. There is no evidence of cardiomegaly clinically. Unit #: [id number] #: [id number] Patient: BÁRBARA JAY V ABDOMEN: Mild to moderately distended. Minimally tender. Hypertympanitic in the upper quadrants without guarding or rebound. Active bowel sounds are present. EXTREMITIES: Full range of motion without limitations. There is no evidence of peripheral edema. BACK EXAM: No CVA tenderness. NEUROLOGIC: The patient is slow to respond but has no obvious motor defects. IMPRESSION The patient has multiple medical problems including an ileus, proximal partial small bowel obstruction which I doubt. Plan will be to go ahead and repeat her abdominal x-rays this evening, keep her NPO. Will hold off NG-tube for now and send her stools for C. diff toxin to rule out C. diff colitis. Dictated by... Angel Bliss Jr., M.D. MARGARETH/toma TD: 05/27/2017 08:43 JOB #: [id number] CONSULTATION REPORT Page 1 of 1 X Angel Bliss MD X CONSULTATION REPORT
--- NOTE | ~2017-05-24 | CR72 ---
[facility] A Service of [facility] & [facility] / [facility] RADIOLOGY TEXT RESULTS PATIENT: BÁRBARA JAY V LOCATION: [place] [address] : [birth year] UNIT #: [id number] AGE: [address]: Mitzi Hernandez MD SEX: F ORDER DR: [id number] [facility] [address] [facility]. [place], [place] [address] [id number] I MR#: [id number] Acc #: [id number] NAME: BÁRBARA JAY V. : 1960 SEX: F STUDY DATE/TIME: 05/30/2017 5:27 UNIT: [facility] ROOM: [facility] STUDY DESCRIPTION: CR Chest Single View Portable Attending Physician: Mitzi Hernandez M.D. Ordering Physician: Bob Lopez M.D. Primary Care Physician: No Primary Care Physician MEDICAL IMAGING REPORT This report is preliminary unless electronic signature is present EXAM Portable chest. INDICATIONS Shortness of air. Followup. PROCEDURE Frontal view chest. COMPARISON 05/29/2017 FINDINGS Right-sided chest tubes are stable. Tiny lateral right-sided pneumothorax. No new dense consolidation. IMPRESSION Tiny, superolateral right pneumothorax. Chest tubes are stable. Dictated by... Maxwell Hernández M.D. THIS IS AN ELECTRONICALLY VERIFIED REPORT Maxwell Hernández M.D. at 05/30/2017 9:53 PM TWAN/vitaly TD: 05/30/2017 12:14 JOB #: [id number] MEDICAL IMAGING REPORT Page 1 of 1 COPY
--- NOTE | ~2017-05-24 | CR72 ---
[facility] A Service of [facility] & [facility] RADIOLOGY TEXT RESULTS PATIENT: BÁRBARA JAY V LOCATION: [facility] 549 : 56 UNIT #: [id number] AGE: [address]: Mitzi Hernandez MD SEX: F ORDER DR: [id number] [facility] [address] [facility]. [place], [place] [address] [id number] I MR#: [id number] Acc #: [id number] NAME: BÁRBARA JAY : 1960 SEX: F STUDY DATE/TIME: 05/31/2017 13:59 UNIT: [facility] ROOM: [facility] STUDY DESCRIPTION: CR Chest Single View Portable Attending Physician: Mitzi Hernandez M.D. Ordering Physician: Freda Pope A.P.R.N. Primary Care Physician: No Primary Care Physician MEDICAL IMAGING REPORT This report is preliminary unless electronic signature is present EXAM Chest, portable; 05/31/2017, 1359 hours. CLINICAL HISTORY 57-year-old woman status post chest tube removal. History of pneumonia. FINDINGS Portable upright chest demonstrates low lung volumes. Right central venous catheter tip projects in the lower right atrium. The right chest tubes have been removed. There is stable density at the right base. There is no definite pneumothorax seen. IMPRESSION Very low lung volumes. Right central venous catheter tip terminates in the right atrium without change. Two right chest tubes have been removed. There is no pneumothorax. Stable patchy density at the right lung base and interstitial change in both lungs. Dictated by... Lesly Calderon M.D. THIS IS AN ELECTRONICALLY VERIFIED REPORT Lesly Calderon M.D. at 05/31/2017 10:34 PM NINOSKA/adonis TD: 05/31/2017 16:58 JOB #: [id number] MEDICAL IMAGING REPORT Page 1 of 1 COPY
--- NOTE | ~2017-05-24 | CR72 ---
[facility] A Service of [facility] & [facility] / [facility] RADIOLOGY TEXT RESULTS PATIENT: BÁRBARA JAY V LOCATION: [facility] : 56 UNIT #: [id number] AGE: [address]: Mitzi Hernandez MD SEX: F ORDER DR: [id number] [facility] [address] [facility]. [place], [place] [address] [id number] I MR#: [id number] Acc #: [id number] NAME: BÁRBARA JAY : 1960 SEX: F STUDY DATE/TIME: 06/01/2017 6:19 UNIT: [facility] ROOM: [facility] STUDY DESCRIPTION: CR Chest Single View Portable Attending Physician: Mitzi Hernandez M.D. Ordering Physician: Freda Pope A.P.R.N. Primary Care Physician: Primary Care Physician No MEDICAL IMAGING REPORT This report is preliminary unless electronic signature is present EXAM Chest x-ray portable HISTORY Short of air. Chest tube. Pneumonia. Emphysema. Symptoms started 05/24/2017. COMMENT Single frontal portable view chest timed 06:19 on 06/01/2017 compared to 05/31/2017. No change in the central venous catheter. Lung volumes are low partly obscuring the mildly enlarged cardiac silhouette. There is airspace disease and/or parenchymal scarring at lung bases with blunting at the costophrenic angles bilaterally. There is focal opacity at the right base which could be pneumonia as indicated in history but follow-up to complete resolution is recommended to exclude neoplastic disease. There is no pneumothorax. Mild improvement in aeration since the prior study. IMPRESSION Mild improvement in aeration/lung volumes since yesterday's film, otherwise no significant interval change in the appearance of the abnormal chest. Continued followup to clearing recommended. Underlying chronic obstructive lung disease noted with mild cardiac silhouette enlargement. Dictated by... Valerie Arevalo M.D. THIS IS AN ELECTRONICALLY VERIFIED REPORT Valerie Arevalo M.D. at 06/01/2017 4:15 PM DEREK/jess TD: 06/01/2017 13:23 [facility] A Service of [facility] & [facility] / [facility] RADIOLOGY TEXT RESULTS PATIENT: BÁRBARA JAY V [facility] [id number] : [birth year] UNIT #: [id number] AGE: [address]: Mitzi Hernandez MD SEX: F ORDER DR: ОЛЬГА #: [id number] MEDICAL IMAGING REPORT Page 1 of 1 COPY
--- NOTE | ~2017-05-24 | CT57 ---
[facility] A Service of [facility] & [facility] RADIOLOGY TEXT RESULTS PATIENT: BÁRBARA JAY V LOCATION: [facility] 310-01 : 56 UNIT #: [id number] AGE: [address]: Mitzi Hernandez MD SEX: F ORDER DR: [id number] [facility] [address] [facility]. [place], [place] [address] [id number] I MR#: [id number] Acc #: [id number] NAME: BÁRBARA JAY : 1960 SEX: F STUDY DATE/TIME: 05/24/2017 13:11 UNIT: [address] ROOM: 310 STUDY DESCRIPTION: CT Chest Wo Cont Attending Physician: Mitzi Hernandez M.D. Referring Physician: Ruperto Madrid M.D. Ordering Physician: Eddie Reyes M.D. Primary Care Physician: Lyly Primary Care Physician MEDICAL IMAGING REPORT This report is preliminary unless electronic signature is present EXAM CT of the chest without contrast. INDICATION Pneumonia diagnosed April 25. TECHNIQUE CT of the chest was performed without contrast. Coronal and sagittal reformatted images were obtained. This CT exam was performed with one or more of the following radiation dose reduction techniques: automatic exposure control, adjustment of mA and/or kV according to patient size, and iterative reconstruction. COMPARISON No studies are available for comparison. FINDINGS Emphysema. Moderate pleural effusion on the right which appears like it is probably loculated. There is associated atelectasis/consolidation involving the right lower lobe. Small air bubble in the pleural space on the right on image 35. Correlate with any recent thoracentesis. Small amount of loculated fluid adjacent to the right heart border. On the left, there is a small pleural effusion with some mild passive atelectasis of the left lower lobe. No suspicious lymphadenopathy. Coronary artery calcification. Bone windows are unremarkable. IMPRESSION 1. Moderate loculated appearing right-sided pleural effusion. 2. Associated right lower lobe atelectasis/consolidation. 3. Small left-sided pleural effusion with mild left lower lobe passive atelectasis. 4. Emphysema. e [facility] A Service of [facility] & [facility] RADIOLOGY TEXT RESULTS PATIENT: BÁRBARA JAY V LOCATION: [facility] 310-01 : 56 UNIT #: [id number] AGE: [address]: Mitzi Hernandez MD SEX: F ORDER DR: Dictated by... Jared Hadley M.D. THIS IS AN ELECTRONICALLY VERIFIED REPORT Jared Hadley M.D. at 05/26/2017 12:11 PM EVANGELIST/adonis TD: 05/24/2017 22:03 JOB #: [id number] MEDICAL IMAGING REPORT Page 1 of 1 COPY
--- NOTE | ~2017-05-24 | CO ---
Unit #: [id number] #: [id number] Patient: BÁRBARA JAY V [id number] [address] [place], [place] [address] [id number] I MR#: [id number] NAME: BÁRBARA JAY V. ROOM: 310 Age: 57 Sex: F Admission Date: 05/24/2017 : 1960 Attending Physician: Mitzi Hernandez M.D. Primary Care Physician: Lyly Primary Care Physician Consultation Date: 05/24/2017 CONSULTATION REPORT REQUESTING PHYSICIAN Dr. Sadler. REASON FOR CONSULTATION Antibiotic management for empyema. HISTORY OF PRESENT ILLNESS This is a 57-year-old white female who is a very poor historian. History was obtained through review of the chart. Discussion with outside hospital microbiology laboratory as well as multiple medical records were sent with the patient. According to family members, she was hospitalized at [facility] for what appears to be pneumonia back in April. She was discharged to senior living and eventually to the home. A few days ago she ended up back in the hospital with what appears to be chest pain, fever, acute renal insufficiency. CT scan showed a loculated right pleural effusion for which the patient was transferred to this facility. Her discharge antibiotics included Zyvox and Zosyn. However, according to microbiology laboratory at outside hospital, she did not have any cultures done during this admission. Back in April, she had Pseudomonas and group B strep in the sputum and the blood cultures were negative. The patient is currently stable. Her main complaint is discomfort in the abdomen and chest. She has no documented fever or hypotension. She also had some cough and sputum production. CT scan done at [place] showed bilateral lower lobe infiltrate, pleural effusion. The right one is loculated and is moderate in size. CT scan here is pending. Her last creatinine at outside hospital was 4.5 and white count was 20,000. CT scan also showed possible LES. PAST MEDICAL HISTORY Recurrent pneumonia, COPD, anxiety, depression, fibromyalgia, chronic pain syndrome. PAST SURGICAL HISTORY Cholecystectomy, tonsillectomy, appendectomy. SOCIAL HISTORY She smokes cigarettes a half pack a day. No history of alcohol or drug use. FAMILY HISTORY Positive for hypertension, cancer, heart disease and diabetes. DRUG ALLERGIES Deconamine. Unit #: [id number] #: [id number] Patient: BÁRBARA JAY V HOME MEDICATIONS 1. Valium. 2. Norvasc. 3. Doxepin. 4. Morphine. 5. Hydroxyurea. 6. Topamax. 7. Tizanidine. Her current medication history in this hospital is still not transcribed. As far as antibiotics were concerned, she is on Zyvox and Zosyn. SYSTEMIC REVIEW Cough, shortness of breath, chest pain, low-grade fever, abdominal distension. No headache, mental status, dysuria. PHYSICAL EXAMINATION GENERAL APPEARANCE: A middle-aged white female who looks older than her stated age. She looks ill, awake and oriented but extremely poor historian. VITAL SIGNS: Temperature 97.9. Heart rate 86. Respiration 18. Blood pressure 100/70. She looks pale. There is no thrush. NECK: Supple. There is no JVD or edema. LUNGS: Scattered rhonchi and crackles at the bases. CARDIAC: Heart sounds are muffled but normal. ABDOMEN: Somewhat distended but soft and nontender. Bowel sounds are hypoactive. There is no rebound or guarding. NEUROLOGIC: Nonfocal. DIAGNOSTIC STUDIES LABORATORY: Lactic acid 0.9. Sodium 133, potassium 4.1, chloride 105, CO2 14, BUN 54, creatinine 5.5, AST 28, ALT 25, alkaline phosphatase 450, bilirubin 0.8, (1) 1.6. Culture information from [place] showed the blood cultures were negative back in April. Sputum cultures grew Pseudomonas and group B strep. Pseudmonas was susceptible to cefepime and Cipro. Workup at [facility] is in progress. IMPRESSION 1. Suspected empyema due to Pseudomonas. 2. Possible ileus. RECOMMENDATIONS Based on susceptibility data from outside hospital, I will change antibiotics to cefepime and levofloxacin. We will discontinue Zyvox and Zosyn. We will wait further workup and Thoracic Surgery evaluation. Further recommendations will follow. Dictated by.Diana Hardy/nate TD: 05/25/2017 15:33 JOB #: [id number] Unit #: [id number] #: [id number] Patient: BÁRBARA JAY V CONSULTATION REPORT Page 1 of 1 X Cuba Yao MD CONSULTATION REPORT
--- NOTE | ~2017-05-24 | XA75 ---
[facility] A Service of [facility] & [facility] RADIOLOGY TEXT RESULTS PATIENT: BÁRBARA JAY V LOCATION: [facility]-15 : 56 UNIT #: [id number] AGE: [address]: Mitzi Hernandez MD SEX: F ORDER DR: [id number] [facility] [address] [facility]. [place], [place] [address] [id number] I MR#: [id number] Acc #: [id number] NAME: BÁRBARA JAY : 1960 SEX: F STUDY DATE/TIME: 05/24/2017 15:29 UNIT: [facility] ROOM: 310 STUDY DESCRIPTION: XA CVC Non-Tunnel Attending Physician: Mitzi Hernandez M.D. Ordering Physician: Mitzi Hernandez M.D. Primary Care Physician: No Primary Care Physician MEDICAL IMAGING REPORT This report is preliminary unless electronic signature is present EXAM Central line insertion, 05/24/2017. HISTORY IV access needed. Triple-lumen catheter insertion requested. PROCEDURE Informed consent was obtained, and a skin site was selected with ultrasound guidance, sterilely prepped and draped, and locally anesthetized. Full sterile technique, including sterile preparation, barrier draping, caps, masks, as well as sterile gowns and gloves were utilized. After local anesthesia using Seldinger technique, the right internal jugular vein was accessed through a small incision, the track dilated, and the triple lumen catheter inserted, affixed to the skin with silk suture, and flushed with a heparin solution. There were no complications. A single spot image was obtained, and 0.1 minutes of fluoroscopy was utilized. Static ultrasound image was preserved, as well. IMPRESSION Successful ultrasound and fluoroscopically-guided insertion of a right IJ triple lumen catheter without complication. Dictated by... David Souza M.D. THIS IS AN ELECTRONICALLY VERIFIED REPORT David Souza M.D. at 05/29/2017 10:06 AM DIANELYS/vitaly TD: 05/24/2017 19:14 JOB #: [id number] [facility] A Service of [facility] & [facility] RADIOLOGY TEXT RESULTS PATIENT: BÁRBARA JAY V LOCATION: [address] : [birth year] UNIT #: [id number] AGE: [address]: Mitzi Hernandez MD SEX: F ORDER DR: MEDICAL IMAGING REPORT Page 1 of 1 COPY
--- NOTE | ~2017-05-24 | OR ---
Unit #: [id number] #: [id number] Patient: BÁRBARA JAY V [id number] [address] [place], [place] [address] [id number] MR#: [id number] NAME: BÁRBARA JAY ROOM: [facility] Date of Procedure: 05/28/2017 Admission Date: 05/24/2017 Surgeon: Bob Lopez M.D. : 1960 Attending Physician: Mitzi Hernandez M.D. Primary Care Physician: Primary Care Physician No OPERATIVE REPORT PREOPERATIVE DIAGNOSES Right pneumonia with a loculated right pleural collection. POSTOPERATIVE DIAGNOSES Right pneumonia with a loculated right pleural collection. PROCEDURE PERFORMED Right video-assisted thoracoscopy with decortication. ANESTHESIA General. ESTIMATED BLOOD LOSS About 200 mL. DRAINS Two #28 chest tubes. COMPLICATIONS None. DESCRIPTION OF PROCEDURE The patient was taken to the operating room and placed on the operating room table in a supine position. After appropriate monitoring lines had been placed, general endotracheal anesthesia was then induced using a double-lumen endotracheal tube. Adequate positioning of this tube was ensured using the pediatric bronchoscope. The patient was placed on the operating room table in a left lateral decubitus position. A rolled sheet was placed beneath the left axillary area. The patient was secured in place on the operating room table using a beanbag as well as tape across the right hip. The right arm was supported anteriorly on an arm support. The right chest was prepped with ChloraPrep and draped in a sterile fashion. A small 1.5 cm skin incision was made in the mid axillary line over about the seventh intercostal space. The incision was carried down through the subcutaneous tissue and muscle and fascial layers using the Bovie. The pleural space was entered at this level using a Andressa clamp and a gloved finger then inserted. The adhesions at the area were broken down using the gloved finger. About 3 to 4 cm incision was then made in the anterior axillary line over the fifth intercostal space. The incision was carried down through the subcutaneous tissue and muscle and fascial layers using the Bovie. The chest was then entered at this level. A trocar introducer was inserted per the incision in the seventh intercostal Unit #: [id number] #: [id number] Patient: BÁRBARA JAY V space and the thoracoscope then inserted. There was quite tannish gelatinous material filling the lower pleural space and with the lung being somewhat trapped in the lower portion by a fibrinous peel. A large cupped forceps was used to remove as much of the gelatinous white tannish collection as was possible. Portions of this material were sent for cytology as well as cultures. Also some of the liquid material in the chest was aspirated free and sent for cytology as well as cultures. It should be stated that there was only minimal liquid fluid in the chest with most of this being this gelatinous collection. A Rodriguez dissector was used to scrape down some of this material from the chest wall in the diaphragm and then it was further removed using the large cupped forceps. The lung was then dissected free from the diaphragm. As more and more of the lung was freed up, it became obvious that the lower lobe was rather trapped by a fibrinous peel as was a good portion of the right middle lobe and some of the lower portion of the right upper lobe. This fibrinous peel was initially dissected free from the underlying lung using a Tonsil clamp and then further dissection from the lung carried out using the Rodriguez dissector. As this material was further freed up, it was removed from the chest cavity using the large cupped forceps. As much of the material was removed from the right lower lobe, the right middle lobe, and the lower portion of the right upper lobe. By doing so, it allowed the lung to expand up better when ventilated and therefore have a better chance of at least filling up the pleural space postop and avoiding further recurrence of the pleural collection. It should be stated that in doing the decortication of the lower lobe, the lower lobe was found to be somewhat consolidated with areas that almost seemed that the lung had formed small abscesses. After as much of the fibrinous material had been removed from the lung as possible, the chest was irrigated with warm sterile water. The sterile water was then aspirated free from the pleural space. The chest was again irrigated with warm sterile water and again it was aspirated free. After adequate hemostasis had been ensured, two #28 chest tubes were inserted and brought out through separate stab wounds in the lower chest. These chest tubes were sutured in place to the skin using 2-0 silk suture. They were then wide together to a single Pleur-evac. At this point, only the incision in the fifth intercostal space remained to be closed. The muscle and fascial layer were closed using running 2-0 Vicryl suture. The subcutaneous tissue was closed using 3-0 Vicryl suture, and the skin incision closed using running 4-0 Vicryl subcuticular stitch. Dermabond was applied to this incision. A cut 4x4 was placed around the chest tubes, and they were secured in place with tape. Estimated blood loss in the procedure was about 200 mL. The patient was given 1 unit of blood during the procedure since her hemoglobin that already been low preoperatively. The patient tolerated the procedure well and left the operating room in satisfactory condition. Dictated by... Diana Esquivel/jessa TD: 05/30/2017 18:48 JOB #: [id number] Unit #: [id number] #: [id number] Patient: BÁRBARA JAY V OPERATIVE REPORT Page 1 of 1 X oBb Lopez MD X PROCEDURE OPERATIVE NOTE
--- NOTE | ~2017-05-24 | CR72 ---
[facility] A Service of [facility] & [facility] RADIOLOGY TEXT RESULTS PATIENT: BÁRBARA JAY V LOCATION: [facility] [address] : [birth year] UNIT #: [id number] AGE: [address]: Mitzi Hernandez MD SEX: F ORDER DR: [id number] [facility] [address] [facility] [place], [place] [address] [id number] I MR#: [id number] Acc #: [id number] NAME: BÁRBARA JAY : 1960 SEX: F STUDY DATE/TIME: 05/31/2017 6:04 UNIT: [facility] ROOM: [facility] STUDY DESCRIPTION: CR Chest Single View Portable Attending Physician: Mitzi Hernandez M.D. Ordering Physician: Freda Pope A.P.R.N. Primary Care Physician: Lyly Primary Care Physician MEDICAL IMAGING REPORT This report is preliminary unless electronic signature is present EXAM Single view chest INDICATION Shortness of air and chest pain. Emphysema. TECHNIQUE AND COMPARISON Single portable view of the chest compared to 05/30/2017. FINDINGS Two right-sided chest tubes remain in place. A right IJ central line terminates over the right atrium. Heart and mediastinal contours are unchanged. Patchy right lung airspace opacities and small right effusion are unchanged. No pneumothorax. IMPRESSION No interval change. Dictated by... Flip Pierre M.D. THIS IS AN ELECTRONICALLY VERIFIED REPORT Flip Pierre M.D. at 05/31/2017 3:09 PM GABRIELA/dany TD: 05/31/2017 09:12 JOB #: [id number] MEDICAL IMAGING REPORT Page 1 of 1 COPY
--- NOTE | ~2017-05-24 | A ---
[facility] Nutrition Therapy DATE: 06/03/17 Patient: BÁRBARA JAY Physician: DEVIN Address: [address] Room/Bed: [address] [place] [address], Zip: [place] [address] Admit Date: 05/24/17 Date of : [birth year] Height: 5 3 Weight: 133 60.6 NUTRITIONAL ASSESSMENT: REASON: LOS ASSESSMENT PT IS 57 Y.O. FEMALE ADMITTED FOR PNEUMONIA PMH: ANXIETY, DEPRESSION, COPD, HTN, FIBROMYALAGIA, RECURRENT PNA Anthropometrics: 5'3", WT: 124-133# SINCE ADMIT (56 KG-60 KG), BMI: 22.0-23.6 -PT REPORTS WEIGHT IS ~128# Labs: CREAT: 1.6, CA+: 7.8, ALB: 1.5, M.4, GFR: 34.9, K+:3.0, NA+:131 Meds: FUROSEMIDE, MIRALAX, SENOKOT, IV LEVAQUIN, ZOFRAN, NACL I/O & Bowel function: 720/702, 2 BMs NOTED Skin Integrity: 1+ PEDAL EDEMA; RUE SWOLLEN Estimated Nutrition Needs: INCREASED NEEDS 2' CURRENT CONDITION, DECREASED PO INTAKE AND APPETITE Assessment: CHART REVIEWED AND EVENTS NOTED. PT SEEN FOR LENGTH OF STAY ASSESSMENT (10 DAYS). PT REPORTS DECREASED PO INTAKE 2' DECREASED APPETITE 2' FEELING SLIGHTLY NAUSEOUS AND DIARRHEA NOTED. PT ADDS "MY APPETITE GOES UP AND DOWN DEPENDING ON HOW I FEEL". PT REPORTS NOT SLEEPING WELL HERE AT HOSPITAL. PT DENIES ANY RECENT WEIGHT LOSS. THIS RD ENCOURAGED SMALL FREQUENT MEALS + SUPPLEMENT INTAKE, PT AGREED TO MAGIC CUP BID, RD TO ORDER. PT REPORTED NO DIET QUESTIONS AT THIS TIME. RD TO FOLLOW. SEE RECOMMENDATIONS BELOW. Dx: INADEQUATE PROTEIN-ENERGY INTAKE R/T DECREASED APPETITE, CURRENT DIAGNOSIS, PMH AEB PT REPORT ABOVE. Intervention: 1. REGULAR DIET 2. MAGIC CUP BID Monitoring, Evaluation and Goals: 1. ORAL INTAKE; CONSUME/TOLERATE >50% OF MEALS AND SUPPLEMENTS 2. WEIGHTS; PROMOTE WEIGHT MAINTENANCE 3. LABS; LYTES MONITOR ABOVE GOALS [facility] Nutrition Therapy DATE: 06/03/17 Patient: BÁRBARA JAY Physician: DEVIN Address: [address] Room/Bed: [address] [place] [address], Zip: [place] [address] Admit Date: 05/24/17 Date of : [birth year] Height: 5 3 Weight: 133 60.6 Recommendations: 1. PLEASE ORDER VANILLA MAGIC CUP BID W/MEALS FOR ADDITIONAL PROTEIN AND KCAL 2. CONTINUE TO ENCOURAGE ADEQUATE PO INTAKE 3. CONSIDER ADDING MVI W/MINERAL DAILY 2' DECREASED APPETITE, PMH RD WILL F/U PER PROTOCOL PT IS MILDLY COMPROMISED Respectfully, QIAN GONZALEZ MS, RD, LD [employer] [facility] [employer] cc: client file
--- NOTE | ~2017-05-24 | CR72 ---
[facility] A Service of [facility] & [facility] RADIOLOGY TEXT RESULTS PATIENT: BÁRBARA JAY V LOCATION: [place] [address]- : [birth year] UNIT #: [id number] AGE: [address]: Mitzi Hernandez MD SEX: F ORDER DR: [id number] [facility] [address] [facility] [place], [place] [address] [id number] I MR#: [id number] Acc #: [id number] NAME: BÁRBARA JAY : 1960 SEX: F STUDY DATE/TIME: 05/26/2017 6:27 UNIT: C3A PCU ROOM: 310 STUDY DESCRIPTION: CR Chest Single View Portable Attending Physician: Mitzi Hernandez M.D. Ordering Physician: Bob Lopez M.D. MEDICAL IMAGING REPORT This report is preliminary unless electronic signature is present EXAM AP view of the chest COMPARISON CT chest dated May 24, 2017. EXAM 57-year-old female with dyspnea for 2 days. Right-sided pneumonia. History of asthma. FINDINGS Moderate to large-sized right loculated pleural effusion is likely unchanged. Right middle and lower lobe opacities are also likely stable since that time, reflecting any combination of atelectasis or possibly pneumonia. The left lung appears clear in particular the pleural effusion and left basilar opacity seen on the left on May 24, 2017 are not seen on the current exam, possibly obscured by the diaphragm. Prior cholecystectomy noted. Cardiomediastinal silhouette is within normal limits. No evidence of pneumothorax. Right internal jugular catheter terminates deep in the right atrium. Consider retraction by approximately 6.1 cm. IMPRESSION 1. As compared CT of May 24, 2017, moderate to large right-sided loculated pleural effusion is grossly stable. There is stable right middle and lower lobe opacities reflecting any combination of atelectasis or pneumonia. Please note that the small left pleural effusion and what is favored to represent left basilar atelectasis seen on May 24, 2017 is not seen on the current radiograph and may be obscured by the diaphragm. 2. Lowly positioned right jugular catheter with the tip terminating deep in the right atrium. Consider retraction by approximately 6 cm. [facility] A Service of [facility] & [facility] RADIOLOGY TEXT RESULTS PATIENT: BÁRBARA JAY V LOCATION: [facility] [address] : 56 UNIT #: [id number] AGE: [address]: Mitzi Hernandez MD SEX: F ORDER DR: Dictated by... Tim Smith M.D. THIS IS AN ELECTRONICALLY VERIFIED REPORT Tim Smith M.D. at 06/02/2017 4:01 PM BLM/pcl TD: 05/26/2017 12:05 JOB #: [id number] MEDICAL IMAGING REPORT Page 1 of 1 COPY
--- NOTE | ~2017-05-24 | HP ---
Unit #: [id number] #: [id number] Patient: BÁRBARA JAY V 662005 [address] [address] [id number] I MR#: [id number] NAME: BÁRBARA JAY V. ROOM: 310 Age: 57 Sex: F Admission Date: 05/24/2017 : 1960 Attending Physician: Mitzi Hernandez M.D. Primary Care Physician: No Primary Care Physician HISTORY AND PHYSICAL CHIEF COMPLAINT Not feeling well, with decreased oral intake. REASON FOR TRANSFER The patient needs VATS. HISTORY OF PRESENT ILLNESS This is a 57-year-old female with a past medical history significant for chronic obstructive pulmonary disease, anxiety, depression and fibromyalgia, who presented to the emergency room at [facility] with decreased oral intake, shortness of breath and cough. The patient is a very poor historian and not interested in communicating, so all the story was obtained from her sister, who is sitting at the bedside. Apparently the patient presented first to [facility] on 04/25/2017 with pneumonia. The patient was hospitalized for about a week and then she was discharged to rehab for five days. The patient was discharged home from the rehab, not in great condition as her sister stated. The patient's condition continued to decline at home with very decreased oral intake and bouts of confusion sometimes. The patient was coughing, but the sister did not notice any productive cough. There was no reported fever, chills or night sweats. The patient also has a chronic pain syndrome and she is on multiple narcotics. Her abdomen noted to be distended. Upon presentation to [facility] her workup was consistent with pneumonia, possible empyema with ileus versus small bowel obstruction. The patient was transferred to our facility needing evaluation for VATS procedure. PAST MEDICAL HISTORY 1. Recurrent pneumonia. 2. Chronic obstructive pulmonary disease. 3. Anxiety. 4. Depression. 5. Fibromyalgia. 6. Chronic pain syndrome. PAST SURGICAL HISTORY 1. Cholecystectomy. 2. Tonsillectomy. Unit #: [id number] #: [id number] Patient: BÁRBARA JAY V 3. Appendectomy. SOCIAL HISTORY The patient smokes at least a half pack per day for more than 15 years. No history of alcohol, except occasionally. No history of drug abuse. FAMILY HISTORY Hypertension, cancer, heart disease and diabetes. ALLERGIES Deconamine. HOME MEDICATIONS 1. Valium. 2. Norvasc. 3. Doxepin. 4. Morphine. 5. Hydroxyurea. 6. Topamax. 7. Tizanidine. REVIEW OF SYSTEMS Twelve point review of systems was obtained from the patient. However, she is a very poor historian and it is only positive for what was mentioned in the history of present illness. PHYSICAL EXAMINATION GENERAL: The patient has a flat affect and she is not communicating well. VITALS: Blood pressure 115/62, respiratory rate 18, O2 saturations 98%. HEENT: Atraumatic, normocephalic. Extraocular muscles intact. NECK: Supple. No jugular venous distension. No lymphadenopathy. CHEST: Decreased breath sounds bilaterally at the bases with fine rhonchi at the right lower base. HEART: S1 and S2. No murmur, gallop or rub. ABDOMEN: Soft, distended, tender to deep palpation. EXTREMITIES: No edema or cyanosis. SKIN: No rashes. NEUROLOGIC: Awake, alert and oriented times three. No focal motor/sensory deficits. DIAGNOSTIC STUDIES Labs and other tests are pending at the time of dictation. ASSESSMENT 1. Hospital acquired pneumonia, Gram negative/MRSA. 2. Empyema. 3. Ileus versus small bowel obstruction. 4. Acute on chronic kidney disease. 5. Toxic metabolic encephalopathy. 6. Chronic pain syndrome. 7. Anxiety. 8. Chronic obstructive pulmonary disease. PLAN 1. Will continue the patient on IV antibiotics, including Zyvox and Zosyn. Will obtain CT of the abdomen, pelvis and chest. 2. Cardiothoracic evaluation for possible VATS. 3. Will hold blood pressure medicine and minimize narcotics. Unit #: [id number] #: [id number] Patient: BÁRBARA JAY V 4. Add midodrine for borderline blood pressure. 5. Gentle IV hydration. 6. Will keep the patient n.p.o. and place NG tube to suction. 7. DVT prophylaxis. Dictated by Diana Cantu TD: 05/24/2017 09:37 JOB #: [id number] HISTORY AND PHYSICAL Page 1 of 1 X PACHECO HOPKINS MD HISTORY AND PHYSICAL
[2017-05-24] MEDS ORDERED: TOPIRAMATE50 MG PO (05:06)
[2017-05-24] MEDS ORDERED: LORATADINE-D T1 EAC1 PO (05:07)
[2017-05-24] MEDS ORDERED: DOXEPIN HCL100 M1 PO (05:10)
[2017-05-24] MEDS ORDERED: SAVELLA50 MG PO (05:10)
[2017-05-24] MEDS ORDERED: RIZATRIPTAN10 M2 PO (05:13)
[2017-05-24] MEDS ORDERED: OMEPRAZOLE20 M1 PO (05:13)
[2017-05-24] MEDS ORDERED: DICYCLOMINE HCL10 MG PO (05:14)
[2017-05-24] MEDS ORDERED: VIVELLE-DOT1 EAC1 TD (05:16)
[2017-05-24] MEDS ORDERED: MOBIC15 MG PO (05:17)
[2017-05-24] MEDS ORDERED: HYDREA500 MG PO (05:19)
[2017-05-24] MEDS ORDERED: AMLODIPINE BESYL5 MG PO (05:20)
[2017-05-24] MEDS ORDERED: LISINOPRIL10 MG PO (05:21)
[2017-05-24] MEDS ORDERED: LYRICA100 MG PO (05:21)
[2017-05-24] MEDS ORDERED: TIZANIDINE HCL4 M1 PO (05:22)
[2017-05-24] MEDS ORDERED: EMBEDA ER 80-31 EACH PO (05:23)
[2017-05-24] MEDS ORDERED: DIAZEPAM10 MG PO (05:24)
[2017-05-24] MEDS ORDERED: ROBAXIN 750750 M1 PO (05:25)
[2017-05-24 11:00] LABS: ALBUMIN SERUM 1.6 g/dL (3.5-5.0); BILIRUBIN,TOTAL 0.8 mg/dL (0.2-2.0); BUN/CREATININE RATIO 9.81; CALCIUM SERUM 7.7 mg/dL (8.4-10.2); CREATININE SERUM 5.5 mg/dL (0.6-1.4); GLOM FILT RATE Estimated 7.8 mL/min (>60); POTASSIUM 4.1 mmol/L (3.5-5.1); PROTEIN TOTAL SERUM 5.4 g/dL (6.0-8.3)
[2017-05-25 05:43] LABS: HEMATOCRIT 25.2 % (35.0-45.0); HEMOGLOBIN 8.2 gm/dL (12.0-16.0); MEAN CELL VOLUME 96.1 FL (83-96); MEAN CORPUSCULAR HEMOGLOBIN 31.3 PG (28-34); MEAN CORPUSCULAR HGB CONC 32.6 g/dL (30-36); MEAN PLATELET VOLUME 7.7 FL (6.5-11.5); RED BLOOD COUNT 2.62 X10e (3.90-5.30); RED CELL DISTRIBUTION WIDTH 15.8 % (11.0-15.5); WHITE BLOOD COUNT 11.9 X10e3 (4.0-10.5)
[2017-05-25 06:55] LABS: ALBUMIN SERUM 1.3 g/dL (3.5-5.0); BILIRUBIN,TOTAL 0.5 mg/dL (0.2-2.0); CALCIUM SERUM 7.2 mg/dL (8.4-10.2); CREATININE SERUM 5.1 mg/dL (0.6-1.4); GLOM FILT RATE Estimated 8.6 mL/min (>60); PHOSPHOROUS 6.5 mg/dL (2.5-4.6); POTASSIUM 3.2 mmol/L (3.5-5.1); PROTEIN TOTAL SERUM 4.5 g/dL (6.0-8.3)
[2017-05-26 05:21] LABS: HEMATOCRIT 24.2 % (35.0-45.0); MEAN CELL VOLUME 96.1 FL (83-96); MEAN CORPUSCULAR HEMOGLOBIN 31.7 PG (28-34); MEAN PLATELET VOLUME 7.5 FL (6.5-11.5); RED BLOOD COUNT 2.52 X10e (3.90-5.30); WHITE BLOOD COUNT 14.5 X10e3 (4.0-10.5)
[2017-05-26 05:57] LABS: BUN/CREATININE RATIO 9.78; CREATININE SERUM 4.7 mg/dL (0.6-1.4); GLOM FILT RATE Estimated 9.5 mL/min (>60)
[2017-05-26 06:11] LABS: POTASSIUM 2.7 mmol/L (3.5-5.1)
[2017-05-26 16:33] LABS: POTASSIUM 3.5 mmol/L (3.5-5.1)
[2017-05-26 16:35] LABS: MAGNESIUM 0.8 mg/dL (1.6-3.0)
[2017-05-27 04:27] LABS: HEMATOCRIT 24.7 % (35.0-45.0); HEMOGLOBIN 8.1 gm/dL (12.0-16.0); MEAN CELL VOLUME 95.5 FL (83-96); MEAN CORPUSCULAR HEMOGLOBIN 31.3 PG (28-34); MEAN CORPUSCULAR HGB CONC 32.8 g/dL (30-36); MEAN PLATELET VOLUME 7.2 FL (6.5-11.5); RED BLOOD COUNT 2.59 X10e (3.90-5.30); RED CELL DISTRIBUTION WIDTH 16.1 % (11.0-15.5)
[2017-05-27 04:42] LABS: INR 1.3; PARTIAL THROMBOPLASTIN TIME 45.2 SECONDS (23.5-31.3); PROTHROMBIN TIME (PATIENT) 14.4 SECONDS (10.0-11.7)
[2017-05-27 04:49] LABS: ALBUMIN SERUM 1.4 g/dL (3.5-5.0); BILIRUBIN,TOTAL 0.7 mg/dL (0.2-2.0); BUN/CREATININE RATIO 9.26; CALCIUM SERUM 7.3 mg/dL (8.4-10.2); CREATININE SERUM 4.1 mg/dL (0.6-1.4); GLOM FILT RATE Estimated 11.2 mL/min (>60); POTASSIUM 3.4 mmol/L (3.5-5.1); PROTEIN TOTAL SERUM 5.2 g/dL (6.0-8.3)
[2017-05-27 10:27] LABS: URINE APPEARANCE TURBID; URINE BILIRUBIN NEG (NEG); URINE BLOOD 3+ (NEG); URINE COLOR YELLOW; URINE GLUCOSE NEG (NEG); URINE KETONE NEG (NEG); URINE LEUKOCYTE ESTERASE 3+ (NEG); URINE NITRATE NEG (NEG); URINE PROTEIN 1+ (NEG); URINE UROBILINOGEN 0.2 MG/DL (NEG)
[2017-05-27 10:29] LABS: URBCS1 AUWI 50-100 /[HPF] (0-2); URINE BACTERIA AUWI NEG (NEGATIVE); URINE SQUAMOUS EPITHELIAL CELL OCC /[HPF]; UWBCS1 AUWI 100-200 (0-5)
[2017-05-27 10:40] LABS: U HYALINE CASTS AUWI 0-2 /[LPF]; URINE MUCUS PRESENT; URINE YEAST PRESENT
[2017-05-28 06:22] LABS: HEMATOCRIT 24.3 % (35.0-45.0); HEMOGLOBIN 7.7 gm/dL (12.0-16.0); MEAN CELL VOLUME 96.6 FL (83-96); MEAN CORPUSCULAR HEMOGLOBIN 30.6 PG (28-34); MEAN CORPUSCULAR HGB CONC 31.7 g/dL (30-36); MEAN PLATELET VOLUME 7.3 FL (6.5-11.5); RED BLOOD COUNT 2.52 X10e (3.90-5.30); RED CELL DISTRIBUTION WIDTH 16.2 % (11.0-15.5); WHITE BLOOD COUNT 27.4 X10e3 (4.0-10.5)
[2017-05-28 06:35] LABS: THYROID STIMULATING HORMONE 3.82 uIU/ml (0.34-5.60)
[2017-05-28 06:52] LABS: ALBUMIN SERUM 1.4 g/dL (3.5-5.0); BILIRUBIN,TOTAL 0.6 mg/dL (0.2-2.0); BUN/CREATININE RATIO 10.3; CALCIUM SERUM 7.9 mg/dL (8.4-10.2); CREATININE SERUM 3.3 mg/dL (0.6-1.4); GLOM FILT RATE Estimated 14.5 mL/min (>60); MAGNESIUM 1.8 mg/dL (1.6-3.0); PHOSPHOROUS 4.5 mg/dL (2.5-4.6); POTASSIUM 3.9 mmol/L (3.5-5.1); PROTEIN TOTAL SERUM 5.2 g/dL (6.0-8.3)
[2017-05-28 16:11] LABS: BASOPHIL# 0.1 X10e3 (0-0.3); BASOPHIL% 0.3 % (0-2.5); EOSINOPHIL# 0.1 X10e3 (0-0.7); EOSINOPHIL% 0.3 % (0.0-7.0); HEMATOCRIT 31.5 % (35.0-45.0); LYMPHOCYTE# 1.6 X10e3 (1.0-3.5); LYMPHOCYTE% 4.3 % (17.0-45.0); MEAN CELL VOLUME 96.9 FL (83-96); MEAN CORPUSCULAR HEMOGLOBIN 30.4 PG (28-34); MEAN CORPUSCULAR HGB CONC 31.4 g/dL (30-36); MEAN PLATELET VOLUME 6.9 FL (6.5-11.5); MONOCYTE# 1.9 X10e3 (0-1.0); NEUTROPHIL# 33.6 X10e3 (1.5-7.1); NEUTROPHIL% 90.1 % (40-75); PLATELET COUNT 660 X10e3 (140-420); RED BLOOD COUNT 3.25 X10e (3.90-5.30); RED CELL DISTRIBUTION WIDTH 15.8 % (11.0-15.5); WHITE BLOOD COUNT 37.3 X10e3 (4.0-10.5)
[2017-05-28 16:16] LABS: DIFF IND YES; HEMOGLOBIN 9.9 gm/dL (12.0-16.0)
[2017-05-28 16:24] LABS: ARTERIAL BLD GAS O2 SATURATION 95.2 % (90.0-100.0); ARTERIAL BLOOD GAS CARBOXY HB 0.9 %sat (0.0-9.0); ARTERIAL BLOOD GAS HCO3 10.7 mmol/L; ARTERIAL BLOOD GAS MET HB 1.1 %sat (0.0-2.0); ARTERIAL BLOOD GAS PCO2 26.5 mmHg (35.0-45.0); ARTERIAL BLOOD GAS pH 7.215 (7.350-7.450)
[2017-05-28 16:24] LABS: BUN/CREATININE RATIO 9.67; CALCIUM SERUM 7.9 mg/dL (8.4-10.2); CREATININE SERUM 3.1 mg/dL (0.6-1.4); GLOM FILT RATE Estimated 15.7 mL/min (>60); POTASSIUM 4.1 mmol/L (3.5-5.1)
[2017-05-28 16:25] LABS: ARTERIAL BLOOD GAS ART SITE RIGHT BRACHIAL; ARTERIAL BLOOD GAS DELIVERY SIMPLE MASK; ARTERIAL DRAW? YES
[2017-05-28 16:55] LABS: ANISOCYTOSIS MOD; PLATELET ESTIMATE INCREASED (NORMAL); POIKILOCYTOSIS SL
[2017-05-28 20:57] LABS: ARTERIAL BLD GAS O2 SATURATION 95.2 % (90.0-100.0); ARTERIAL BLOOD GAS CARBOXY HB 0.7 %sat (0.0-9.0); ARTERIAL BLOOD GAS HCO3 11.7 mmol/L; ARTERIAL BLOOD GAS MET HB 0.8 %sat (0.0-2.0); ARTERIAL BLOOD GAS PCO2 25.2 mmHg (35.0-45.0); ARTERIAL BLOOD GAS PO2 84.9 mmHg (80.0-100); ARTERIAL BLOOD GAS pH 7.277 (7.350-7.450)
[2017-05-28 20:58] LABS: ARTERIAL BLOOD GAS ALLEN TEST NORMAL; ARTERIAL BLOOD GAS ART SITE RIGHT RADIAL; ARTERIAL BLOOD GAS DELIVERY SIMPLE OXYGEN MASK; ARTERIAL DRAW? YES
[2017-05-29 04:19] LABS: ARTERIAL BLD GAS O2 SATURATION 94.9 % (90.0-100.0); ARTERIAL BLOOD GAS CARBOXY HB 0.7 %sat (0.0-9.0); ARTERIAL BLOOD GAS MET HB 0.7 %sat (0.0-2.0); ARTERIAL BLOOD GAS PCO2 25.5 mmHg (35.0-45.0); ARTERIAL BLOOD GAS pH 7.349 (7.350-7.450)
[2017-05-29 04:23] LABS: ARTERIAL BLOOD GAS PO2 75.9 mmHg (80.0-100)
[2017-05-29 04:24] LABS: ARTERIAL BLOOD GAS ALLEN TEST NORMAL; ARTERIAL BLOOD GAS ART SITE RIGHT RADIAL; ARTERIAL BLOOD GAS DELIVERY NASAL CANNULA; ARTERIAL DRAW? YES
[2017-05-29 05:28] LABS: BASOPHIL# 0.1 X10e3 (0-0.3); BASOPHIL% 0.3 % (0-2.5); EOSINOPHIL% 0.1 % (0.0-7.0); HEMATOCRIT 23.7 % (35.0-45.0); LYMPHOCYTE# 1.5 X10e3 (1.0-3.5); LYMPHOCYTE% 3.5 % (17.0-45.0); MEAN CELL VOLUME 94.6 FL (83-96); MEAN CORPUSCULAR HEMOGLOBIN 30.9 PG (28-34); MEAN CORPUSCULAR HGB CONC 32.7 g/dL (30-36); MEAN PLATELET VOLUME 7.4 FL (6.5-11.5); NEUTROPHIL# 38.3 X10e3 (1.5-7.1); NEUTROPHIL% 89.1 % (40-75); PLATELET COUNT 568 X10e3 (140-420); RED CELL DISTRIBUTION WIDTH 15.8 % (11.0-15.5); WHITE BLOOD COUNT 42.9 X10e3 (4.0-10.5)
[2017-05-29 05:37] LABS: HEMOGLOBIN 7.7 gm/dL (12.0-16.0)
[2017-05-29 05:38] LABS: DIFF IND NO
[2017-05-29 05:46] LABS: BUN/CREATININE RATIO 10.34; CALCIUM SERUM 7.8 mg/dL (8.4-10.2); CREATININE SERUM 2.9 mg/dL (0.6-1.4); MAGNESIUM 1.4 mg/dL (1.6-3.0); POTASSIUM 4.1 mmol/L (3.5-5.1)
[2017-05-29 11:56] LABS: POTASSIUM,URINE RANDOM 23 mmol/L; SODIUM URINE RANDOM 65 mmol/L
[2017-05-29 13:08] LABS: OSMOLALITY,URINE 304 mOsmo/kg (250-900)
[2017-05-30 05:57] LABS: BASOPHIL# 0.1 X10e3 (0-0.3); BASOPHIL% 0.3 % (0-2.5); EOSINOPHIL# 0.2 X10e3 (0-0.7); EOSINOPHIL% 0.6 % (0.0-7.0); HEMATOCRIT 21.2 % (35.0-45.0); HEMOGLOBIN 7.1 gm/dL (12.0-16.0); LYMPHOCYTE# 1.3 X10e3 (1.0-3.5); LYMPHOCYTE% 3.7 % (17.0-45.0); MEAN CELL VOLUME 93.8 FL (83-96); MEAN CORPUSCULAR HEMOGLOBIN 31.2 PG (28-34); MEAN CORPUSCULAR HGB CONC 33.2 g/dL (30-36); MEAN PLATELET VOLUME 7.6 FL (6.5-11.5); MONOCYTE# 2.1 X10e3 (0-1.0); NEUTROPHIL# 30.9 X10e3 (1.5-7.1); NEUTROPHIL% 89.4 % (40-75); PLATELET COUNT 555 X10e3 (140-420); RED BLOOD COUNT 2.26 X10e (3.90-5.30); RED CELL DISTRIBUTION WIDTH 15.9 % (11.0-15.5); WHITE BLOOD COUNT 34.5 X10e3 (4.0-10.5)
[2017-05-30 06:13] LABS: CALCIUM SERUM 7.9 mg/dL (8.4-10.2); CREATININE SERUM 2.6 mg/dL (0.6-1.4); GLOM FILT RATE Estimated 19.4 mL/min (>60); MAGNESIUM 1.6 mg/dL (1.6-3.0); POTASSIUM 3.2 mmol/L (3.5-5.1)
[2017-05-30 06:18] LABS: DIFF IND NO
[2017-05-30 06:26] LABS: ALBUMIN SERUM 1.4 g/dL (3.5-5.0); BILIRUBIN,TOTAL 0.4 mg/dL (0.2-2.0); BUN/CREATININE RATIO 10.38; PHOSPHOROUS 4.1 mg/dL (2.5-4.6); PROTEIN TOTAL SERUM 5.1 g/dL (6.0-8.3)
[2017-05-31 06:56] LABS: BASOPHIL# 0.1 X10e3 (0-0.3); BASOPHIL% 0.4 % (0-2.5); EOSINOPHIL# 0.1 X10e3 (0-0.7); EOSINOPHIL% 0.3 % (0.0-7.0); HEMATOCRIT 24.3 % (35.0-45.0); HEMOGLOBIN 8.1 gm/dL (12.0-16.0); LYMPHOCYTE# 1.6 X10e3 (1.0-3.5); LYMPHOCYTE% 6.1 % (17.0-45.0); MEAN CELL VOLUME 91.2 FL (83-96); MEAN CORPUSCULAR HEMOGLOBIN 30.5 PG (28-34); MEAN CORPUSCULAR HGB CONC 33.4 g/dL (30-36); MEAN PLATELET VOLUME 7.9 FL (6.5-11.5); MONOCYTE# 2.1 X10e3 (0-1.0); MONOCYTE% 8.3 % (3.0-12.0); NEUTROPHIL# 21.8 X10e3 (1.5-7.1); NEUTROPHIL% 84.9 % (40-75); PLATELET COUNT 536 X10e3 (140-420); RED BLOOD COUNT 2.67 X10e (3.90-5.30); RED CELL DISTRIBUTION WIDTH 16.2 % (11.0-15.5); WHITE BLOOD COUNT 25.6 X10e3 (4.0-10.5)
[2017-05-31 07:15] LABS: DIFF IND NO
[2017-05-31 07:41] LABS: ALBUMIN SERUM 1.5 g/dL (3.5-5.0); BILIRUBIN,TOTAL 0.7 mg/dL (0.2-2.0); BUN/CREATININE RATIO 10.47; CALCIUM SERUM 7.9 mg/dL (8.4-10.2); CREATININE SERUM 2.1 mg/dL (0.6-1.4); GLOM FILT RATE Estimated 25.1 mL/min (>60); MAGNESIUM 1.6 mg/dL (1.6-3.0); POTASSIUM 3.4 mmol/L (3.5-5.1); PROTEIN TOTAL SERUM 5.3 g/dL (6.0-8.3)
[2017-06-01 05:47] LABS: BASOPHIL# 0.1 X10e3 (0-0.3); BASOPHIL% 0.9 % (0-2.5); EOSINOPHIL# 0.1 X10e3 (0-0.7); EOSINOPHIL% 0.3 % (0.0-7.0); HEMATOCRIT 20.6 % (35.0-45.0); LYMPHOCYTE# 1.8 X10e3 (1.0-3.5); LYMPHOCYTE% 11.2 % (17.0-45.0); MEAN CORPUSCULAR HEMOGLOBIN 30.2 PG (28-34); MEAN CORPUSCULAR HGB CONC 32.8 g/dL (30-36); MEAN PLATELET VOLUME 7.9 FL (6.5-11.5); MONOCYTE# 1.6 X10e3 (0-1.0); NEUTROPHIL# 12.2 X10e3 (1.5-7.1); NEUTROPHIL% 77.6 % (40-75); PLATELET COUNT 462 X10e3 (140-420); RED BLOOD COUNT 2.24 X10e (3.90-5.30); RED CELL DISTRIBUTION WIDTH 16.1 % (11.0-15.5); WHITE BLOOD COUNT 15.8 X10e3 (4.0-10.5)
[2017-06-01 06:04] LABS: DIFF IND YES; HEMOGLOBIN 6.8 gm/dL (12.0-16.0)
[2017-06-01 06:45] LABS: ANISOCYTOSIS MOD; HYPOCHROMIA SL; PLATELET ESTIMATE NORMAL (NORMAL)
[2017-06-01 07:47] LABS: BUN/CREATININE RATIO 12.1; CALCIUM SERUM 7.8 mg/dL (8.4-10.2); CREATININE SERUM 1.9 mg/dL (0.6-1.4); GLOM FILT RATE Estimated 28.4 mL/min (>60); MAGNESIUM 1.6 mg/dL (1.6-3.0); POTASSIUM 4.1 mmol/L (3.5-5.1)
[2017-06-01 08:58] LABS: CHOLESTEROL 69 mg/dL (0-200); HDL CHOLESTEROL 7 mg/dL (35-95); LDL CHOLESTEROL 45 mg/dL (-130); LDL/HDL RATIO 6 RATIO (0-4); TRIGLYCERIDES 84 mg/dL (10-160)
[2017-06-02 05:46] LABS: BASOPHIL# 0.2 X10e3 (0-0.3); BASOPHIL% 1.2 % (0-2.5); EOSINOPHIL# 0.1 X10e3 (0-0.7); EOSINOPHIL% 0.4 % (0.0-7.0); LYMPHOCYTE# 1.9 X10e3 (1.0-3.5); LYMPHOCYTE% 12.8 % (17.0-45.0); MEAN CELL VOLUME 91.5 FL (83-96); MEAN CORPUSCULAR HEMOGLOBIN 30.3 PG (28-34); MEAN CORPUSCULAR HGB CONC 33.2 g/dL (30-36); MEAN PLATELET VOLUME 8.1 FL (6.5-11.5); MONOCYTE# 1.7 X10e3 (0-1.0); MONOCYTE% 11.2 % (3.0-12.0); NEUTROPHIL% 74.4 % (40-75); PLATELET COUNT 443 X10e3 (140-420); RED BLOOD COUNT 2.62 X10e (3.90-5.30); RED CELL DISTRIBUTION WIDTH 15.7 % (11.0-15.5); WHITE BLOOD COUNT 14.8 X10e3 (4.0-10.5)
[2017-06-02 05:49] LABS: DIFF IND YES
[2017-06-02 06:12] LABS: ALBUMIN SERUM 1.5 g/dL (3.5-5.0); BILIRUBIN,TOTAL 0.4 mg/dL (0.2-2.0); BUN/CREATININE RATIO 12.77; CALCIUM SERUM 8.1 mg/dL (8.4-10.2); CREATININE SERUM 1.8 mg/dL (0.6-1.4); GLOM FILT RATE Estimated 30.3 mL/min (>60); MAGNESIUM 1.6 mg/dL (1.6-3.0); PHOSPHOROUS 3.3 mg/dL (2.5-4.6); POTASSIUM 3.5 mmol/L (3.5-5.1); PROTEIN TOTAL SERUM 5.2 g/dL (6.0-8.3)
[2017-06-02 07:15] LABS: ANISOCYTOSIS SL; HYPOCHROMIA SL; PLATELET ESTIMATE NORMAL (NORMAL)
[2017-06-03 05:24] LABS: HEMATOCRIT 22.1 % (35.0-45.0); HEMOGLOBIN 7.3 gm/dL (12.0-16.0); MEAN CELL VOLUME 91.5 FL (83-96); MEAN CORPUSCULAR HEMOGLOBIN 30.2 PG (28-34); MEAN PLATELET VOLUME 7.9 FL (6.5-11.5); RED BLOOD COUNT 2.42 X10e (3.90-5.30); RED CELL DISTRIBUTION WIDTH 15.8 % (11.0-15.5); WHITE BLOOD COUNT 12.9 X10e3 (4.0-10.5)
[2017-06-03 06:07] LABS: BUN/CREATININE RATIO 12.5; CALCIUM SERUM 7.8 mg/dL (8.4-10.2); CREATININE SERUM 1.6 mg/dL (0.6-1.4); GLOM FILT RATE Estimated 34.9 mL/min (>60); MAGNESIUM 1.4 mg/dL (1.6-3.0)
[2017-06-03 14:53] LABS: URINE APPEARANCE CLEAR; URINE BILIRUBIN NEG (NEG); URINE BLOOD 2+ (NEG); URINE COLOR YELLOW; URINE GLUCOSE NEG (NEG); URINE KETONE NEG (NEG); URINE LEUKOCYTE ESTERASE TRACE (NEG); URINE NITRATE NEG (NEG); URINE PH 7.5 (5-8); URINE PROTEIN 2+ (NEG); URINE SPECIFIC GRAVITY 1.013 (1.003-1.035); URINE UROBILINOGEN 0.2 MG/DL (NEG)
[2017-06-03 14:57] LABS: URBCS1 AUWI 25-50 /[HPF] (0-2); URINE BACTERIA AUWI NEG (NEGATIVE); URINE SQUAMOUS EPITHELIAL CELL OCC /[HPF]
[2017-06-03 16:36] LABS: MAGNESIUM 1.8 mg/dL (1.6-3.0); POTASSIUM 3.6 mmol/L (3.5-5.1)
[2017-06-04 05:51] LABS: HEMATOCRIT 23.1 % (35.0-45.0); HEMOGLOBIN 7.7 gm/dL (12.0-16.0); MEAN CELL VOLUME 91.5 FL (83-96); MEAN CORPUSCULAR HEMOGLOBIN 30.5 PG (28-34); MEAN CORPUSCULAR HGB CONC 33.4 g/dL (30-36); MEAN PLATELET VOLUME 7.9 FL (6.5-11.5); RED BLOOD COUNT 2.53 X10e (3.90-5.30); RED CELL DISTRIBUTION WIDTH 15.7 % (11.0-15.5); WHITE BLOOD COUNT 12.6 X10e3 (4.0-10.5)
[2017-06-04 06:17] LABS: ALBUMIN SERUM 1.6 g/dL (3.5-5.0); BILIRUBIN,TOTAL 0.3 mg/dL (0.2-2.0); BUN/CREATININE RATIO 11.33; CALCIUM SERUM 7.7 mg/dL (8.4-10.2); CREATININE SERUM 1.5 mg/dL (0.6-1.4); GLOM FILT RATE Estimated 37.8 mL/min (>60); MAGNESIUM 1.9 mg/dL (1.6-3.0); PHOSPHOROUS 2.5 mg/dL (2.5-4.6); POTASSIUM 3.1 mmol/L (3.5-5.1); PROTEIN TOTAL SERUM 5.4 g/dL (6.0-8.3)
== END 2017-06-05 00:05 | DRG 853 ==
LOC: C3A PCU 00:49 → CICCU3 00:49 → CEDOF 00:49 → C3A PCU 01:06 → CICCU3 05-28 19:47 → C5B 05-30 17:02 → C2A 06-02 17:28
PROVIDERS: Internal Medicine; Internal Medicine Cardiovascular Disease; Internal Medicine Nephrology; Internal Medicine Pulmonary Disease; Surgery
PROC: 30233N1 Transfusion of Nonautologous Red Blood Cells into Peripheral Vein, Percutaneous Approach (ICD-10-PCS; 2017-05-28)
PROC: 0BDN4ZZ Extraction of Right Pleura, Percutaneous Endoscopic Approach (ICD-10-PCS; principal; 2017-05-28 13:00)
PROC: B24BYZZ Ultrasonography of Heart with Aorta using Other Contrast (ICD-10-PCS; 2017-05-30)
PROC: 02HV33Z Insertion of Infusion Device into Superior Vena Cava, Percutaneous Approach (ICD-10-PCS; 2017-06-04)
PROC: B518YZA Fluoroscopy of Superior Vena Cava using Other Contrast, Guidance (ICD-10-PCS; 2017-06-04)
PROC: B548ZZA Ultrasonography of Superior Vena Cava, Guidance (ICD-10-PCS; 2017-06-04)
DX: A41.9 Sepsis, unspecified organism (principal); J86.9 Pyothorax without fistula; J96.01 Acute respiratory failure with hypoxia; J15.1 Pneumonia due to Pseudomonas; G92 Toxic encephalopathy; E87.2 Acidosis; N17.9 Acute kidney failure, unspecified; K56.7 Ileus, unspecified; J44.0 Chronic obstructive pulmonary disease with (acute) lower respiratory infection; E46 Unspecified protein-calorie malnutrition; D62 Acute posthemorrhagic anemia; F05 Delirium due to known physiological condition; E87.1 Hypo-osmolality and hyponatremia; F33.2 Major depressive disorder, recurrent severe without psychotic features; Z90.49 Acquired absence of other specified parts of digestive tract; F17.210 Nicotine dependence, cigarettes, uncomplicated; G89.4 Chronic pain syndrome; F41.9 Anxiety disorder, unspecified; I12.9 Hypertensive chronic kidney disease with stage 1 through stage 4 chronic kidney disease, or unspecified chronic kidney disease; N18.9 Chronic kidney disease, unspecified; M79.7 Fibromyalgia; F29 Unspecified psychosis not due to a substance or known physiological condition; E87.6 Hypokalemia; Z68.22 Body mass index [BMI] 22.0-22.9, adult
CPT/HCPCS: 36600; 71010; 71250; 74020; 74176; 76937; 77001; 80048; 80053; 80061; 80202; 81003; 82308; 82310; 82436; 82533; 82550; 82728; 82803; 82947; 83540; 83550; 83605; 83735; 83880; 83935; 84100; 84132; 84133; 84300; 84443; 85025; 85027; 85610; 85730; 86334; 86850; 86900; 86901; 86923; 87040; 87070; 87075; 87086; 87205; 87493; 88108; 88305; 89190; 93005; 93306; 93971; 94640; 94760; 94761; 97110; 97116; 97163; 97164; 97166; 97530; 97535; C1751; C1894; G8978-GP; G8979-GP; G8987-GO; G8988-GO; J0330; J0692; J1170; J1642; J1644; J1940; J1956; J2250; J2270; J2405; J2710; J2765; J2916; J3010; J3370; J3475; J3490; J7060; P9016